=== PATIENT | female | born 1990 | race Caucasian/White ===

== ENCOUNTER 2017-05-22 10:58 | Emergency (ER) | payer OTHER ==
[2017-05-22] MEDS ORDERED: Ondansetron ODT 4 MG TAB ONE (11:24)
[2017-05-22] MEDS ORDERED: Acetaminophen/Codeine 30-300mg Tablet ONE (12:06)
== END 2017-05-22 12:10 | disposition home or self-care (01) ==
LOC: SCSER 10:58
DX: S00.83XA Contusion of other part of head, initial encounter (principal); F41.9 Anxiety disorder, unspecified; M32.9 Systemic lupus erythematosus, unspecified; W01.10XA Fall on same level from slipping, tripping and stumbling with subsequent striking against unspecified object, initial encounter
CPT/HCPCS: Q0162

== ENCOUNTER 2017-06-15 16:15 | Emergency (ER) | payer OTHER ==
[2017-06-15] MEDS ORDERED: predniSONE 20 MG TAB ONE (17:03)
[2017-06-15] MEDS ORDERED: HYDROcodone/Acetaminophen 10/325 mg Tablet ONE (17:03)
== END 2017-06-15 17:15 | disposition home or self-care (01) ==
LOC: SCSER 16:15
DX: M54.42 Lumbago with sciatica, left side (principal); M32.9 Systemic lupus erythematosus, unspecified; F41.9 Anxiety disorder, unspecified
CPT/HCPCS: 99283; J7506

== ENCOUNTER 2017-06-20 16:51 | Emergency (ER) | payer OTHER ==
[2017-06-20 18:14] LABS: Bilirubin Negative (Negative); Blood, Urine Large (Negative); Glucose, Urine (Dipstick) Negative (Negative); Ketone, Urine Negative (Negative); Nitrite Negative (Negative); Protein, Urine (Dipstick) 30 mg/dL (Neg-Trace); Urobilinogen 0.2 mg/dL (0.2-1.0)
[2017-06-20 18:21] LABS: Bacteria/HPF 1+ HPF (None Seen); RBC/HPF 21-50 HPF (0-3); WBC/HPF None Seen HPF (0-3)
[2017-06-20] MEDS ORDERED: Morphine 4 MG/ML Carpuject ONE (19:00)
[2017-06-20] MEDS ORDERED: Dexamethasone 10 MG/ML VIAL ONE (19:00)
[2017-06-20] MEDS ORDERED: Ondansetron ODT 4 MG TAB ONE (19:00)
== END 2017-06-20 19:35 | disposition home or self-care (01) ==
LOC: SCSER 16:51
DX: M54.42 Lumbago with sciatica, left side (principal); F41.9 Anxiety disorder, unspecified; M32.9 Systemic lupus erythematosus, unspecified
CPT/HCPCS: 81003; 81015; 81025; 96372; J1100; J2270; Q0162

== ENCOUNTER 2017-07-12 01:02 | Emergency (ER) | payer OTHER ==
--- NOTE | 2017-08-10 11:56 | EKG ---
Test Reason : Blood Pressure : / mmHG Vent. Rate : 094 BPM Atrial Rate : 094 BPM P-R Int : 108 ms QRS Dur : 078 ms QT Int : 350 ms P-R-T Axes : 065 056 055 degrees QTc Int : 437 ms Sinus rhythm with short OH Otherwise normal ECG Confirmed by ELIDA KENNY, DEEPAK ([id number]), sports editor KIERAN SCHUMACHER ([id number]) on 08/10/2017 11:56:18 AM Referred By: Confirmed By:DEEPAK MARRERO MD
== END 2017-07-12 02:01 | disposition home or self-care (01) ==
LOC: SCSER 01:02
DX: M17.0 Bilateral primary osteoarthritis of knee (principal); M19.012 Primary osteoarthritis, left shoulder; M19.011 Primary osteoarthritis, right shoulder; M19.032 Primary osteoarthritis, left wrist; M19.031 Primary osteoarthritis, right wrist; M32.9 Systemic lupus erythematosus, unspecified; F41.9 Anxiety disorder, unspecified; Z79.52 Long term (current) use of systemic steroids
CPT/HCPCS: 93005

== ENCOUNTER 2017-09-18 19:43 | Emergency (ER) | payer OTHER ==
[2017-09-18] MEDS ORDERED: Ketorolac Tromethamine 30 MG/ML VIAL ONE (20:16)
[2017-09-18 20:39] LABS: Pregnancy Test - Urine (BHCG) Negative (Negative); Pregu Control Background? CLEAR/WHITE (CLR/WHITE); Pregu Control Bar Appear? YES (CONTROL BAR); Specific Gravity 1.032 (1.002-1.036)
--- NOTE | 2017-09-18 21:16 | RAD ---
AP PELVIS: 09/18/17 HISTORY: Low back pain and hip pain. The pelvis is intact. Hips appear unremarkable. No abnormality identified. IMPRESSION: No acute findings. POS: [facility]
--- NOTE | 2017-09-18 21:18 | RAD ---
LEFT HIP: 09/18/17 Two views. HISTORY: Left hip pain. Femoral head appears normally maintained in position. No fracture or osseous abnormality identified. IMPRESSION: Unremarkable left hip. POS: [facility]
--- NOTE | 2017-09-18 21:20 | RAD ---
LUMBAR SPINE: 09/18/17 Three views. HISTORY: Low back pain. Lumbar vertebrae maintain normal height and alignment. There is loss of disc space at L5-S1. No evide nce of spondylolisthesis or spondylolysis. S1 is transitional. IMPRESSION: Unremarkable lumbar spine. POS: [facility]
== END 2017-09-18 21:15 | disposition home or self-care (01) ==
LOC: SCSER 19:43
DX: M54.16 Radiculopathy, lumbar region (principal); L93.0 Discoid lupus erythematosus; F41.9 Anxiety disorder, unspecified; Z79.899 Other long term (current) drug therapy
CPT/HCPCS: 72100; 72170; 81025; 96372; J1885

== ENCOUNTER 2017-12-03 21:22 | Emergency (ER) | payer OTHER | END 2017-12-03 21:39 | disposition left against medical advice (07) | LOC: SCSER 21:22 | DX: Z53.21 Procedure and treatment not carried out due to patient leaving prior to being seen by health care provider (principal) ==

== ENCOUNTER 2018-02-25 19:42 | Emergency (ER) | payer OTHER ==
[2018-02-25] MEDS ORDERED: Ketorolac Tromethamine 30 MG/ML VIAL ONE (20:03)
[2018-02-25 20:25] LABS: #Basophils 0.1 thou/uL (0.0-0.2); #Eosinphils 0.2 thou/uL (0.0-0.7); #Lymphocytes 1.9 thou/uL (1.20-3.40); #Monocytes 0.5 thou/uL (0.11-0.59); #Neutrophils 3.5 thou/uL (1.40-6.50); %Basophils 0.8 % (0.0-1.0); %Lymphocytes 30.8 % (21.0-51.0); %Neutrophils 57.4 % (42.0-75.0); Anisocytosis SLIGHT = 6-15 cells (100X) (0-5/hpf); Elliptocytes SLIGHT = 2-5 cells (100X) (0-1/hpf); Hemoglobin 8.5 g/dL (12.0-16.0); Hypochromia MODERATE=16-30 cells (100X) (0-5/hpf); MDiff Complete? YES; Mean Corpuscular HGB CONC 30.6 g/dL (32.0-36.0); Mean Corpuscular Volume 68.6 fL (78.0-98.0); Mean Platelet Volume 7.3 fL (7.4-10.4); Microcytosis MODERATE=15-30 cells (100X) (0-5/hpf); PLT Morphology Comment Appears Adequate; Platelet Count 206 thou/uL (130-400); RBC Distribution Width 13.8 % (11.5-14.5); Red Blood Cell (RBC) Count 4.03 mill/uL (4.20-5.40); Reflex for Review?? YES
[2018-02-25 20:29] LABS: ALT (SGPT) 19 U/L (8-55); AST (SGOT) 16 U/L (5-34); Albumin 3.4 g/dL (3.5-5.0); Alkaline Phosphatase 47 U/L (40-150); Anion Gap 11 mmol/L (10-20); BUN (Urea Nitrogen) 15 mg/dL (7.0-18.7); Bilirubin, Total 0.2 mg/dL (0.2-1.2); Calc. Creatinine Clearance 0 mL/min (70-130); Calcium 8.4 mg/dL (7.8-10.44); Carbon Dioxide 26 mmol/L (22-29); Chloride 108 mmol/L (98-107); Estimated GFR-MDRD Greater than 90; Glucose 87 mg/dL (70-105); Lipase 29 U/L (8-78); Potassium 3.7 mmol/L (3.5-5.1); Protein, Total 5.4 g/dL (6.0-8.3); Sodium 141 mmol/L (136-145)
[2018-02-25 20:44] LABS: Bilirubin Moderate (Negative); Blood, Urine Negative (Negative); Clarity Slightly Cloudy (Clear); Glucose, Urine (Dipstick) Negative (Negative); Leukocyte Trace (Negative); Nitrite Negative (Negative); Protein, Urine (Dipstick) Negative (Neg-Trace); Specific Gravity, Urine 1.025 (1.005-1.030); Urobilinogen 0.2 mg/dL (0.2-1.0)
[2018-02-25 20:46] LABS: RBC/HPF 0-3 HPF (0-3)
[2018-02-25 20:47] LABS: Bacteria/HPF 1+ HPF (None Seen); Pregnancy Test - Urine (BHCG) Negative (Negative); Pregu Control Background? CLEAR/WHITE (CLR/WHITE); Pregu Control Bar Appear? YES (CONTROL BAR); Specific Gravity 1.025 (1.002-1.036)
[2018-02-25] MEDS ORDERED: Acetaminophen 500 MG TAB ONE (21:21)
--- NOTE | 2018-02-25 22:18 | CT ---
CT ABDOMEN AND PELVIS WITHOUT CONTRAST: 02/25/18 HISTORY: Right flank pain. COMPARISON: CT abdomen and pelvis January 06, 2017. FINDINGS: Lung bases are clear. No pericardial effusion. Prior cholecystectomy. Prior gastric surgery. There is no nephroureterolithiasis or hydroureteronephrosis. No secondary evidence of a recently pass ed stone. No free intraperitoneal gas or fluid. Mild third spacing of fluid. There are a few appendicoliths wit hin the appendix versus inspissated material. No evidence of acute appendicitis. Noncontrast evaluation of the liver, spleen, pancreas are all unremarkable. 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 IMPRESSION: 1. No acute inflammatory process in the abdomen or pelvis. 2. No nephroureterolithiasis or hydroureteronephrosis. No secondary evidence of a recently passe d stone. 3. Mild third spacing of fluid. POS: [facility]
== END 2018-02-25 21:25 | disposition home or self-care (01) ==
LOC: SCSER 19:42
DX: N39.0 Urinary tract infection, site not specified (principal)
CPT/HCPCS: 36415; 74176; 80053; 81003; 81015; 81025; 83690; 85025; 85060; 87086; 96361; 96374; J1885

== ENCOUNTER 2019-10-31 15:01 | Emergency (ER) | payer MEDICAID, OTHER, SELFPAY ==
[2019-10-31 15:47] LABS: #Basophils 0.1 thou/uL (0.0-0.2); #Eosinphils 0.1 thou/uL (0.0-0.7); #Lymphocytes 2.7 thou/uL (1.20-3.40); #Monocytes 0.4 thou/uL (0.11-0.59); #Neutrophils 4.7 thou/uL (1.40-6.50); %Basophils 1.2 % (0.0-1.0); %Eosinophils 0.9 % (0.0-10.0); %Lymphocytes 34.2 % (21.0-51.0); %Monocytes 4.9 % (0.0-10.0); %Neutrophils 58.8 % (42.0-75.0); Hemoglobin 14.2 g/dL (12.0-16.0); Mean Corpuscular HGB CONC 32.3 g/dL (32.0-36.0); Mean Corpuscular Hemoglobin 27.2 pg (27.0-31.0); Mean Corpuscular Volume 84.4 fL (78.0-98.0); Mean Platelet Volume 7.9 fL (7.4-10.4); Platelet Count 278 thou/uL (130-400); RBC Distribution Width 12.8 % (11.5-14.5); Red Blood Cell (RBC) Count 5.22 mill/uL (4.20-5.40); White Blood Cell (WBC) Count 7.9 thou/uL (4.8-10.8)
[2019-10-31 15:55] LABS: BHCG - Serum Negative (NEGATIVE); Pregs Control Background? CLEAR/WHITE (CLR/WHITE); Pregs Control Bar Appear? YES (CONTROL BAR)
[2019-10-31 16:05] LABS: Acetaminophen Less than 6.0 mcg/mL (10.0-30.0); Alcohol 269 mg/dL (Less than 10); CK (CPK) 157 U/L (29-168); Salicylate Less than 8.0 mg/dL (15.0-30.0)
[2019-10-31 16:14] LABS: Amphetamine Detected (NotDetected); Barbiturates Screen Not Detected (NotDetected); Benzodiazepine Screen Not Detected (NotDetected); Cocaine Metabolite Screen Not Detected (NotDetected); Medtox Control Line Valid? VALID (VALID); Medtox Reader # READER 4; Methadone Not Detected (NotDetected); Methamphetamine Not Detected (NotDetected); Opiate Screen Not Detected (NotDetected); Oxycodone Screen Not Detected (NotDetected); Phencyclidine (PCP) Not Detected (NotDetected); THC/Cannabinoid Screen Not Detected (NotDetected); Tricyclic Screen Not Detected (NotDetected)
[2019-10-31 16:18] LABS: ALT (SGPT) 15 U/L (8-55); AST (SGOT) 26 U/L (5-34); Albumin 3.8 g/dL (3.5-5.0); Alkaline Phosphatase 53 U/L (40-110); Anion Gap 20 mmol/L (10-20); BUN (Urea Nitrogen) 6 mg/dL (7.0-18.7); Bilirubin, Total 0.3 mg/dL (0.2-1.2); Calc. Creatinine Clearance 0 mL/min (70-130); Calcium 8.8 mg/dL (7.8-10.44); Carbon Dioxide 15 mmol/L (22-29); Chloride 109 mmol/L (98-107); Estimated GFR-MDRD Greater than 90; Globulin 3.4 g/dL (2.4-3.5); Glucose 93 mg/dL (70-105); Potassium 4.2 mmol/L (3.5-5.1); Protein, Total 7.2 g/dL (6.0-8.3); Sodium 140 mmol/L (136-145)
--- NOTE | 2019-11-04 14:15 | EKG ---
Test Reason : Blood Pressure : / mmHG Vent. Rate : 079 BPM Atrial Rate : 079 BPM P-R Int : 120 ms QRS Dur : 080 ms QT Int : 394 ms P-R-T Axes : 023 059 058 degrees QTc Int : 451 ms Normal sinus rhythm Normal ECG Confirmed by GUERA STATON DO ([id number]), video editor LUZ JOSE ([id number]) on 11/04/2019 2:15:22 PM Referred By: Confirmed By:GUERA STATON DO
== END 2019-10-31 16:38 | disposition short-term general hospital (02) ==
LOC: ERS 15:01
DX: T74.21XA Adult sexual abuse, confirmed, initial encounter (principal); S40.022A Contusion of left upper arm, initial encounter; S40.021A Contusion of right upper arm, initial encounter; F10.129 Alcohol abuse with intoxication, unspecified; F15.90 Other stimulant use, unspecified, uncomplicated; F41.9 Anxiety disorder, unspecified; F32.9 Major depressive disorder, single episode, unspecified; Y07.59 Other non-family member, perpetrator of maltreatment and neglect; Y90.8 Blood alcohol level of 240 mg/100 ml or more
CPT/HCPCS: 36415; 80053; 80306; 80307; 82550; 84703; 85025; 87086; 93005

== ENCOUNTER 2021-02-25 07:24 | Inpatient (IN) | payer BC, SELFPAY ==
[2021-02-25] MEDS ORDERED: Guaifenesin DM 100-10/5 ML UDCUP PO PRN (09:35)
[2021-02-25] MEDS ORDERED: Ivermectin 3 MG TAB PO SCH (09:45)
[2021-02-25 10:29] LABS: #Lymphocytes 0.1 thou/uL (1.20-3.40); #Monocytes 0.1 thou/uL (0.11-0.59); %Eosinophils 0.1 % (0.0-10.0); %Lymphocytes 4.2 % (21.0-51.0); %Monocytes 4.3 % (0.0-10.0); %Neutrophils 90.5 % (42.0-75.0); Hemoglobin 10.2 g/dL (12.0-16.0); Mean Corpuscular HGB CONC 30.9 g/dL (32.0-36.0); Mean Corpuscular Hemoglobin 24.8 pg (27.0-31.0); Mean Corpuscular Volume 80.2 fL (78.0-98.0); Mean Platelet Volume 9.9 fL (7.4-10.4); Platelet Count 160 thou/uL (130-400); RBC Distribution Width 14.5 % (11.5-14.5); Red Blood Cell (RBC) Count 4.12 mill/uL (4.20-5.40); White Blood Cell (WBC) Count 3.3 thou/uL (4.8-10.8)
[2021-02-25 10:47] LABS: Anion Gap 13 mmol/L (10-20); BUN (Urea Nitrogen) 6 mg/dL (7.0-18.7); CRP (Inflammatory) 12.73 mg/dL (= or < 0.5); Calc. Creatinine Clearance 248 mL/min (70-130); Calcium 8.3 mg/dL (7.8-10.44); Carbon Dioxide 28 mmol/L (22-29); Chloride 97 mmol/L (98-107); Glucose 86 mg/dL (70-105); Magnesium 1.6 mg/dL (1.6-2.6); Potassium 3.4 mmol/L (3.5-5.1); Sodium 135 mmol/L (136-145)
[2021-02-25] MEDS ORDERED: Magnesium 2 GM/50 ML 2 GM in Premix Bag 1 BAG IVPB SCH (13:00)
[2021-02-25] MEDS ORDERED: Potassium Chloride 20 MEQ TAB PO SCH (13:00)
[2021-02-25] MEDS: clonazePAM 0.5 MG TAB PO SCH ×2 (13:44→20:17)
[2021-02-25] MEDS: Acetaminophen 325 MG TAB PO PRN ×2 (16:06→23:39)
[2021-02-25] MEDS ORDERED: REMDESIVIR 200 MG in Sodium Chloride 0.9% 250 ML 210 ML IV SCH (16:15)
[2021-02-25] MEDS ORDERED: BARICITINIB 2 MG TAB PO SCH (16:15)
[2021-02-25] MEDS ORDERED: traMADol HCl 50 MG TAB PO PRN (16:21)
[2021-02-25] MEDS: cloNIDine 0.1 MG TAB PO SCH (20:17)
[2021-02-25] MEDS: Dexamethasone 4 mg/ml Vial SLOW IVP SCH (20:17)
[2021-02-25] MEDS: Pregabalin 75 MG CAP PO SCH (20:18)
[2021-02-25] MEDS: Colchicine 0.6 MG TAB PO SCH (20:18)
[2021-02-25] MEDS: Enoxaparin Sodium 40 MG/0.4 ML SYRINGE SC SCH (20:18)
[2021-02-25] MEDS ORDERED: Non-Formulary Item 1 EACH (Dextroamphetamine/Amphetamine [Adderall] 30 MG Tablet) PO SCH (21:00)
[2021-02-25] MEDS: Mometasone 200 MCG/Formoterol 5 MCG 120 PUFF INHALER INH SCH (21:15)
[2021-02-25] MEDS: hydrOXYzine 25 MG TAB PO PRN (23:36)
[2021-02-26] MEDS: Mometasone 200 MCG/Formoterol 5 MCG 120 PUFF INHALER INH SCH ×2 (05:54→18:22)
[2021-02-26 06:32] LABS: Band 18 % (5-11); Hemoglobin 11.2 g/dL (12.0-16.0); Lymphocytes 9 % (21-51); MDiff Complete? YES; Mean Corpuscular HGB CONC 32.1 g/dL (32.0-36.0); Mean Corpuscular Hemoglobin 25.5 pg (27.0-31.0); Mean Corpuscular Volume 79.3 fL (78.0-98.0); Mean Platelet Volume 10.6 fL (7.4-10.4); Monocytes 7 % (0-10); Myelocyte 1 % (0-0); Neutrophil 64 % (42-75); Platelet Count 128 thou/uL (130-400); Platelet Morphology Comment Appears Adequate; RBC Distribution Width 14.3 % (11.5-14.5); RBC Morphology Normal; Reactive Lymphocytes 1 % (0-10); Red Blood Cell (RBC) Count 4.39 mill/uL (4.20-5.40); White Blood Cell (WBC) Count 2.6 thou/uL (4.8-10.8)
[2021-02-26 06:35] LABS: Anion Gap 15 mmol/L (10-20); BUN (Urea Nitrogen) 5 mg/dL (7.0-18.7); Calc. Creatinine Clearance 236 mL/min (70-130); Calcium 8.4 mg/dL (7.8-10.44); Carbon Dioxide 26 mmol/L (22-29); Chloride 100 mmol/L (98-107); Glucose 84 mg/dL (70-105); Potassium 3.8 mmol/L (3.5-5.1); Sodium 137 mmol/L (136-145)
[2021-02-26] MEDS: Ondansetron PF 4 MG/2 ML Vial IVP PRN (06:35)
[2021-02-26] MEDS: BARICITINIB 2 MG TAB PO SCH (08:28)
[2021-02-26] MEDS: Ascorbic Acid 500 mg Chewable Tablet PO SCH (08:28)
[2021-02-26] MEDS: Cholecalciferol 1,000 UNITS (25 MCG) TAB PO SCH (08:29)
[2021-02-26] MEDS: Colchicine 0.6 MG TAB PO SCH ×2 (08:30→20:13)
[2021-02-26] MEDS: clonazePAM 0.5 MG TAB PO SCH ×3 (08:30→20:15)
[2021-02-26] MEDS ORDERED: Cholecalciferol 1,000 UNITS (25 MCG) TAB PO SCH (08:30)
[2021-02-26] MEDS: Dexamethasone 4 mg/ml Vial SLOW IVP SCH ×2 (08:30→20:16)
[2021-02-26] MEDS: Pregabalin 75 MG CAP PO SCH ×3 (08:32→20:14)
[2021-02-26] MEDS: Zinc Sulfate 220 MG CAP PO SCH (08:33)
[2021-02-26] MEDS: FLUoxetine HCl 10 MG CAP PO SCH (08:38)
[2021-02-26] MEDS ORDERED: FLUoxetine HCl 20 MG CAP PO SCH (09:00)
[2021-02-26] MEDS ORDERED: Morphine 2 MG/ML VIAL SLOW IVP PRN (09:08)
[2021-02-26] MEDS: Ivermectin 3 MG TAB PO SCH (11:38)
[2021-02-26] MEDS: Morphine 2 MG/ML VIAL SLOW IVP PRN ×3 (12:21→22:30)
[2021-02-26] MEDS: Albuterol 200 PUFF (6.7GM INHALER) INH SCH ×2 (12:27→20:18)
[2021-02-26] MEDS ORDERED: Albuterol Sulfate 2.5 mg/3 ml Neb NEB SCH (13:00)
[2021-02-26] MEDS ORDERED: Sodium Chloride 0.9% 1,000 ML IV SCH (13:30)
[2021-02-26] MEDS: Ondansetron ODT 4 MG TAB PO PRN (16:01)
[2021-02-26] MEDS: cloNIDine 0.1 MG TAB PO SCH (20:13)
[2021-02-26] MEDS: Enoxaparin Sodium 40 MG/0.4 ML SYRINGE SC SCH (20:15)
[2021-02-26] MEDS: REMDESIVIR 100 MG in Sodium Chloride 0.9% 250 ML 230 ML IV SCH (23:22)
[2021-02-27] MEDS: Albuterol 200 PUFF (6.7GM INHALER) INH SCH ×4 (01:05→18:25)
[2021-02-27] MEDS: Morphine 2 MG/ML VIAL SLOW IVP PRN ×4 (05:18→21:10)
[2021-02-27] MEDS: Mometasone 200 MCG/Formoterol 5 MCG 120 PUFF INHALER INH SCH ×2 (06:23→17:31)
[2021-02-27 06:42] LABS: #Lymphocytes 0.2 thou/uL (1.20-3.40); #Monocytes 0.2 thou/uL (0.11-0.59); #Neutrophils 1.3 thou/uL (1.40-6.50); %Eosinophils 0.1 % (0.0-10.0); %Monocytes 9.4 % (0.0-10.0); %Neutrophils 76.5 % (42.0-75.0); Hemoglobin 10.1 g/dL (12.0-16.0); Mean Corpuscular HGB CONC 31.8 g/dL (32.0-36.0); Mean Corpuscular Hemoglobin 25.3 pg (27.0-31.0); Mean Corpuscular Volume 79.6 fL (78.0-98.0); Mean Platelet Volume 9.2 fL (7.4-10.4); Platelet Count 184 thou/uL (130-400); RBC Distribution Width 14.4 % (11.5-14.5); White Blood Cell (WBC) Count 1.7 thou/uL (4.8-10.8)
[2021-02-27 07:04] LABS: Anion Gap 12 mmol/L (10-20); BUN (Urea Nitrogen) 8 mg/dL (7.0-18.7); CRP (Inflammatory) 10.75 mg/dL (= or < 0.5); Calc. Creatinine Clearance 225 mL/min (70-130); Calcium 8.4 mg/dL (7.8-10.44); Carbon Dioxide 29 mmol/L (22-29); Chloride 103 mmol/L (98-107); Glucose 141 mg/dL (70-105); Potassium 3.9 mmol/L (3.5-5.1); Sodium 140 mmol/L (136-145)
[2021-02-27] MEDS: Ivermectin 3 MG TAB PO SCH (08:22)
[2021-02-27] MEDS: Pregabalin 75 MG CAP PO SCH ×3 (08:23→21:53)
[2021-02-27] MEDS: Zinc Sulfate 220 MG CAP PO SCH (08:23)
[2021-02-27] MEDS: Colchicine 0.6 MG TAB PO SCH ×2 (08:23→21:53)
[2021-02-27] MEDS: clonazePAM 0.5 MG TAB PO SCH ×3 (08:23→21:59)
[2021-02-27] MEDS: Cholecalciferol 1,000 UNITS (25 MCG) TAB PO SCH (08:23)
[2021-02-27] MEDS: Dexamethasone 4 mg/ml Vial SLOW IVP SCH ×2 (08:24→21:54)
[2021-02-27] MEDS: Ascorbic Acid 500 mg Chewable Tablet PO SCH (08:24)
[2021-02-27] MEDS: BARICITINIB 2 MG TAB PO SCH (08:24)
[2021-02-27] MEDS: FLUoxetine HCl 10 MG CAP PO SCH (08:24)
[2021-02-27] MEDS: ALPRAZolam 0.25 MG TAB PO PRN (11:52)
[2021-02-27] MEDS: Enoxaparin Sodium 40 MG/0.4 ML SYRINGE SC SCH (21:53)
[2021-02-27] MEDS: REMDESIVIR 100 MG in Sodium Chloride 0.9% 250 ML 230 ML IV SCH (21:55)
[2021-02-28] MEDS: cloNIDine 0.1 MG TAB PO SCH ×2 (02:06→20:38)
[2021-02-28] MEDS: hydrOXYzine 25 MG TAB PO PRN (03:10)
[2021-02-28] MEDS: ALPRAZolam 0.25 MG TAB PO PRN ×3 (03:10→18:44)
[2021-02-28 06:53] LABS: #Lymphocytes 0.3 thou/uL (1.20-3.40); #Monocytes 0.4 thou/uL (0.11-0.59); #Neutrophils 5.1 thou/uL (1.40-6.50); %Eosinophils 0.3 % (0.0-10.0); %Lymphocytes 5.4 % (21.0-51.0); %Monocytes 7.4 % (0.0-10.0); Hemoglobin 10.2 g/dL (12.0-16.0); Mean Corpuscular HGB CONC 31.6 g/dL (32.0-36.0); Mean Platelet Volume 8.9 fL (7.4-10.4); Platelet Count 238 thou/uL (130-400); RBC Distribution Width 14.3 % (11.5-14.5); Red Blood Cell (RBC) Count 4.07 mill/uL (4.20-5.40); White Blood Cell (WBC) Count 5.9 thou/uL (4.8-10.8)
[2021-02-28 07:06] LABS: Anion Gap 11 mmol/L (10-20); BUN (Urea Nitrogen) 11 mg/dL (7.0-18.7); CRP (Inflammatory) 4.47 mg/dL (= or < 0.5); Calc. Creatinine Clearance 225 mL/min (70-130); Calcium 8.4 mg/dL (7.8-10.44); Carbon Dioxide 30 mmol/L (22-29); Chloride 103 mmol/L (98-107); Glucose 114 mg/dL (70-105); Potassium 3.8 mmol/L (3.5-5.1); Sodium 140 mmol/L (136-145)
[2021-02-28] MEDS: Dexamethasone 4 mg/ml Vial SLOW IVP SCH ×2 (08:20→20:39)
[2021-02-28] MEDS: Colchicine 0.6 MG TAB PO SCH ×2 (08:21→20:37)
[2021-02-28] MEDS: Zinc Sulfate 220 MG CAP PO SCH (08:21)
[2021-02-28] MEDS: Ascorbic Acid 500 mg Chewable Tablet PO SCH (08:21)
[2021-02-28] MEDS: Cholecalciferol 1,000 UNITS (25 MCG) TAB PO SCH (08:21)
[2021-02-28] MEDS: FLUoxetine HCl 10 MG CAP PO SCH (08:22)
[2021-02-28] MEDS: Pregabalin 75 MG CAP PO SCH ×3 (08:22→20:37)
[2021-02-28] MEDS: Albuterol 200 PUFF (6.7GM INHALER) INH SCH ×4 (08:22→20:32)
[2021-02-28] MEDS: clonazePAM 0.5 MG TAB PO SCH ×3 (08:22→20:38)
[2021-02-28] MEDS: Ivermectin 3 MG TAB PO SCH (08:23)
[2021-02-28] MEDS: Mometasone 200 MCG/Formoterol 5 MCG 120 PUFF INHALER INH SCH ×2 (08:23→20:33)
[2021-02-28] MEDS: BARICITINIB 2 MG TAB PO SCH (08:24)
[2021-02-28] MEDS: Ondansetron PF 4 MG/2 ML Vial IVP PRN (10:13)
[2021-02-28] MEDS: Morphine 2 MG/ML VIAL SLOW IVP PRN (14:12)
[2021-02-28] MEDS: HYDROcodone/Acetaminophen 5/325 mg Tablet PO PRN (18:44)
[2021-02-28] MEDS: Enoxaparin Sodium 40 MG/0.4 ML SYRINGE SC SCH (20:39)
[2021-02-28] MEDS: REMDESIVIR 100 MG in Sodium Chloride 0.9% 250 ML 230 ML IV SCH (21:19)
[2021-03-01] MEDS: HYDROcodone/Acetaminophen 5/325 mg Tablet PO PRN ×4 (00:51→20:00)
[2021-03-01] MEDS: Albuterol 200 PUFF (6.7GM INHALER) INH SCH ×4 (00:52→19:41)
[2021-03-01] MEDS: hydrOXYzine 25 MG TAB PO PRN (02:14)
[2021-03-01 04:29] LABS: ALT (SGPT) 29 U/L (8-55); AST (SGOT) 34 U/L (5-34); Albumin 2.7 g/dL (3.5-5.0); Alkaline Phosphatase 110 U/L (40-110); Anion Gap 12 mmol/L (10-20); BUN (Urea Nitrogen) 12 mg/dL (7.0-18.7); Bilirubin, Direct 0.1 mg/dL (0.1-0.3); Bilirubin, Total 0.3 mg/dL (0.2-1.2); Calc. Creatinine Clearance 237 mL/min (70-130); Carbon Dioxide 28 mmol/L (22-29); Chloride 102 mmol/L (98-107); Globulin 2.6 g/dL (2.4-3.5); Glucose 111 mg/dL (70-105); Protein, Total 5.3 g/dL (6.0-8.3); Sodium 138 mmol/L (136-145)
[2021-03-01] MEDS: Mometasone 200 MCG/Formoterol 5 MCG 120 PUFF INHALER INH SCH ×2 (05:49→19:42)
[2021-03-01] MEDS: ALPRAZolam 0.25 MG TAB PO PRN (05:49)
[2021-03-01 07:26] LABS: #Lymphocytes 0.4 thou/uL (1.20-3.40); #Monocytes 0.5 thou/uL (0.11-0.59); %Eosinophils 0.2 % (0.0-10.0); %Lymphocytes 7.3 % (21.0-51.0); %Monocytes 8.6 % (0.0-10.0); %Neutrophils 83.8 % (42.0-75.0); Hemoglobin 10.6 g/dL (12.0-16.0); Mean Corpuscular Hemoglobin 25.2 pg (27.0-31.0); Mean Corpuscular Volume 78.7 fL (78.0-98.0); Mean Platelet Volume 8.8 fL (7.4-10.4); Platelet Count 242 thou/uL (130-400); RBC Distribution Width 14.1 % (11.5-14.5)
[2021-03-01] MEDS: Aspirin 81 mg Enteric Coated Tablet PO SCH (07:56)
[2021-03-01] MEDS: clonazePAM 0.5 MG TAB PO SCH ×3 (07:56→19:59)
[2021-03-01] MEDS: Ascorbic Acid 500 mg Chewable Tablet PO SCH (07:56)
[2021-03-01] MEDS: Cholecalciferol 1,000 UNITS (25 MCG) TAB PO SCH (07:56)
[2021-03-01] MEDS: Dexamethasone 4 mg/ml Vial SLOW IVP SCH ×2 (07:57→20:01)
[2021-03-01] MEDS: FLUoxetine HCl 10 MG CAP PO SCH (07:57)
[2021-03-01] MEDS: Enoxaparin Sodium 40 MG/0.4 ML SYRINGE SC SCH ×2 (07:57→19:58)
[2021-03-01] MEDS: Colchicine 0.6 MG TAB PO SCH ×2 (07:57→20:00)
[2021-03-01] MEDS: Zinc Sulfate 220 MG CAP PO SCH (07:57)
[2021-03-01] MEDS: Pregabalin 75 MG CAP PO SCH ×3 (07:58→19:59)
[2021-03-01] MEDS: BARICITINIB 2 MG TAB PO SCH (08:03)
[2021-03-01] MEDS: Ivermectin 3 MG TAB PO SCH (08:03)
[2021-03-01] MEDS: Ondansetron PF 4 MG/2 ML Vial IVP PRN ×2 (12:44→20:24)
[2021-03-01] MEDS: cloNIDine 0.1 MG TAB PO SCH (19:59)
[2021-03-01] MEDS: REMDESIVIR 100 MG in Sodium Chloride 0.9% 250 ML 230 ML IV SCH (22:09)
[2021-03-02] MEDS: ALPRAZolam 0.25 MG TAB PO PRN ×2 (00:59→23:29)
[2021-03-02] MEDS: Albuterol 200 PUFF (6.7GM INHALER) INH SCH ×4 (01:08→19:30)
[2021-03-02] MEDS: HYDROcodone/Acetaminophen 5/325 mg Tablet PO PRN ×3 (03:14→16:42)
[2021-03-02] MEDS: hydrOXYzine 25 MG TAB PO PRN (03:58)
[2021-03-02 04:15] LABS: ALT (SGPT) 22 U/L (8-55); AST (SGOT) 21 U/L (5-34); Albumin 2.9 g/dL (3.5-5.0); Alkaline Phosphatase 112 U/L (40-110); Anion Gap 13 mmol/L (10-20); BUN (Urea Nitrogen) 11 mg/dL (7.0-18.7); Bilirubin, Total 0.4 mg/dL (0.2-1.2); Calc. Creatinine Clearance 215 mL/min (70-130); Calcium 8.1 mg/dL (7.8-10.44); Carbon Dioxide 28 mmol/L (22-29); Chloride 103 mmol/L (98-107); Globulin 2.7 g/dL (2.4-3.5); Glucose 115 mg/dL (70-105); Protein, Total 5.6 g/dL (6.0-8.3); Sodium 140 mmol/L (136-145)
[2021-03-02] MEDS: Mometasone 200 MCG/Formoterol 5 MCG 120 PUFF INHALER INH SCH ×2 (07:10→19:30)
[2021-03-02] MEDS: Ascorbic Acid 500 mg Chewable Tablet PO SCH (09:01)
[2021-03-02] MEDS: Aspirin 81 mg Enteric Coated Tablet PO SCH (09:01)
[2021-03-02] MEDS: BARICITINIB 2 MG TAB PO SCH (09:01)
[2021-03-02] MEDS: Cholecalciferol 1,000 UNITS (25 MCG) TAB PO SCH (09:01)
[2021-03-02] MEDS: clonazePAM 0.5 MG TAB PO SCH ×3 (09:02→21:17)
[2021-03-02] MEDS: Dexamethasone 4 mg/ml Vial SLOW IVP SCH ×2 (09:02→21:18)
[2021-03-02] MEDS: Colchicine 0.6 MG TAB PO SCH ×2 (09:02→21:17)
[2021-03-02] MEDS: Pregabalin 75 MG CAP PO SCH ×3 (09:03→21:17)
[2021-03-02] MEDS: Enoxaparin Sodium 40 MG/0.4 ML SYRINGE SC SCH ×2 (09:03→21:17)
[2021-03-02] MEDS: FLUoxetine HCl 10 MG CAP PO SCH (09:03)
[2021-03-02] MEDS: Zinc Sulfate 220 MG CAP PO SCH (09:03)
[2021-03-02] MEDS: Ivermectin 3 MG TAB PO SCH (09:03)
[2021-03-02] MEDS: Ondansetron ODT 4 MG TAB PO PRN (10:48)
[2021-03-03] MEDS: Albuterol 200 PUFF (6.7GM INHALER) INH SCH ×4 (00:30→20:50)
[2021-03-03] MEDS: cloNIDine 0.1 MG TAB PO SCH ×2 (00:35→21:13)
[2021-03-03] MEDS: HYDROcodone/Acetaminophen 5/325 mg Tablet PO PRN ×3 (01:27→16:15)
[2021-03-03 04:19] LABS: ALT (SGPT) 18 U/L (8-55); AST (SGOT) 21 U/L (5-34); Albumin 2.9 g/dL (3.5-5.0); Alkaline Phosphatase 100 U/L (40-110); Anion Gap 11 mmol/L (10-20); BUN (Urea Nitrogen) 8 mg/dL (7.0-18.7); Bilirubin, Total 0.5 mg/dL (0.2-1.2); Calc. Creatinine Clearance 224 mL/min (70-130); Calcium 8.3 mg/dL (7.8-10.44); Carbon Dioxide 31 mmol/L (22-29); Chloride 100 mmol/L (98-107); Globulin 2.9 g/dL (2.4-3.5); Glucose 109 mg/dL (70-105); Potassium 3.7 mmol/L (3.5-5.1); Protein, Total 5.8 g/dL (6.0-8.3); Sodium 138 mmol/L (136-145)
[2021-03-03] MEDS: Ondansetron PF 4 MG/2 ML Vial IVP PRN (06:36)
[2021-03-03] MEDS: Acetaminophen 325 MG TAB PO PRN (06:37)
[2021-03-03] MEDS: Mometasone 200 MCG/Formoterol 5 MCG 120 PUFF INHALER INH SCH ×2 (08:49→20:50)
[2021-03-03] MEDS: Ascorbic Acid 500 mg Chewable Tablet PO SCH (08:52)
[2021-03-03] MEDS: Aspirin 81 mg Enteric Coated Tablet PO SCH (08:52)
[2021-03-03] MEDS: Zinc Sulfate 220 MG CAP PO SCH (08:53)
[2021-03-03] MEDS: Cholecalciferol 1,000 UNITS (25 MCG) TAB PO SCH (08:53)
[2021-03-03] MEDS: Ondansetron ODT 4 MG TAB PO PRN ×2 (08:53→16:17)
[2021-03-03] MEDS: clonazePAM 0.5 MG TAB PO SCH ×3 (08:53→20:55)
[2021-03-03] MEDS: FLUoxetine HCl 10 MG CAP PO SCH (08:54)
[2021-03-03] MEDS: Dexamethasone 4 mg/ml Vial SLOW IVP SCH (08:54)
[2021-03-03] MEDS: Enoxaparin Sodium 40 MG/0.4 ML SYRINGE SC SCH ×2 (08:54→20:54)
[2021-03-03] MEDS: Pregabalin 75 MG CAP PO SCH ×3 (08:55→20:55)
[2021-03-03] MEDS: Ivermectin 3 MG TAB PO SCH (09:23)
[2021-03-03] MEDS: BARICITINIB 2 MG TAB PO SCH (09:23)
[2021-03-03] MEDS: Colchicine 0.6 MG TAB PO SCH ×2 (09:24→20:55)
[2021-03-04] MEDS: ALPRAZolam 0.25 MG TAB PO PRN ×2 (00:35→08:13)
[2021-03-04] MEDS: Albuterol 200 PUFF (6.7GM INHALER) INH SCH ×4 (00:50→19:33)
[2021-03-04] MEDS: Morphine 2 MG/ML VIAL SLOW IVP PRN ×3 (02:25→10:19)
[2021-03-04] MEDS: Ondansetron PF 4 MG/2 ML Vial IVP PRN (04:10)
[2021-03-04] MEDS: HYDROcodone/Acetaminophen 5/325 mg Tablet PO PRN (04:10)
[2021-03-04] MEDS: hydrOXYzine 25 MG TAB PO PRN (04:25)
[2021-03-04] MEDS: Mometasone 200 MCG/Formoterol 5 MCG 120 PUFF INHALER INH SCH ×2 (06:08→19:34)
[2021-03-04] MEDS: Acetaminophen 325 MG TAB PO PRN (06:19)
[2021-03-04] MEDS: Zinc Sulfate 220 MG CAP PO SCH (07:57)
[2021-03-04] MEDS: Pregabalin 75 MG CAP PO SCH ×3 (07:57→20:59)
[2021-03-04] MEDS: Ascorbic Acid 500 mg Chewable Tablet PO SCH ×2 (07:57→08:00)
[2021-03-04] MEDS: Cholecalciferol 1,000 UNITS (25 MCG) TAB PO SCH (07:59)
[2021-03-04] MEDS: clonazePAM 0.5 MG TAB PO SCH ×3 (08:00→20:12)
[2021-03-04] MEDS: FLUoxetine HCl 10 MG CAP PO SCH (08:00)
[2021-03-04] MEDS: Colchicine 0.6 MG TAB PO SCH ×2 (08:00→20:59)
[2021-03-04] MEDS: Aspirin 81 mg Enteric Coated Tablet PO SCH (08:00)
[2021-03-04] MEDS: Enoxaparin Sodium 40 MG/0.4 ML SYRINGE SC SCH ×2 (08:01→21:00)
[2021-03-04] MEDS: Ivermectin 3 MG TAB PO SCH (08:12)
[2021-03-04] MEDS: BARICITINIB 2 MG TAB PO SCH (11:23)
[2021-03-04] MEDS ORDERED: Dexamethasone 4 mg/ml Vial SLOW IVP SCH ×2 (12:15→18:00)
[2021-03-04] MEDS ORDERED: Norepinephrine 8 MG/0.9% NS 250 ML ONE (12:38)
[2021-03-04] MEDS ORDERED: Propofol 1,000 MG/100 ML VIAL IV ONE ×2 (12:38→12:41)
[2021-03-04] MEDS ORDERED: Midazolam HCl 2 mg/2 ml Vial ONE (12:40)
[2021-03-04] MEDS ORDERED: Fentanyl 100 MCG/2 ML VIAL ONE (12:40)
[2021-03-04 13:56] LABS: Actual Bicarbonate (HCO3a) 27.8 mEq/L (22-28); Base Excess (BEa) 3.2 mEq/L (-2.0 to +3.0); CO2 Tension 42.9 mmHg (35.0-45.0); Carboxyhemoglobin (COHb) 0.2 gm% (0.0-3.0); Hemoglobin (Hb) 11.3 g/dL (12.0-16.0); O2 Tension (PaO2), arterial 67.2 mmHg (80.0-100.0); Potassium - ABG Lab 3.37 mmol/L (3.70-5.30); pH, Arterial 7.43 (7.35-7.45)
[2021-03-04 13:57] LABS: ALV-art Gradient 592.175 mmHg (0-20); Puncture Site LBA
[2021-03-04] MEDS ORDERED: Sterile Water 10 ML ONE ×2 (15:47→22:55)
[2021-03-04] MEDS ORDERED: Vecuronium 10 MG VIAL ONE (15:47)
[2021-03-04] MEDS ORDERED: Vecuronium 10 MG VIAL IV SCH (16:00)
[2021-03-04] MEDS ORDERED: Vecuronium 10 MG VIAL IV PRN (16:26)
[2021-03-04] MEDS: cloNIDine 0.1 MG TAB PO SCH (20:59)
[2021-03-04] MEDS: Dexamethasone 4 mg/ml Vial SLOW IVP SCH (20:59)
[2021-03-04] MEDS: Propofol 1,000 MG/100 ML VIAL IV PRN (21:00)
[2021-03-04] MEDS: Vecuronium 10 MG VIAL IV PRN (22:57)
[2021-03-05] MEDS: Propofol 1,000 MG/100 ML VIAL IV PRN ×9 (00:26→23:51)
[2021-03-05] MEDS: Albuterol 200 PUFF (6.7GM INHALER) INH SCH ×4 (01:20→19:04)
[2021-03-05] MEDS ORDERED: Sterile Water 10 ML ONE (02:13)
[2021-03-05] MEDS: Vecuronium 10 MG VIAL IV PRN (02:15)
[2021-03-05 04:24] LABS: #Lymphocytes 0.1 thou/uL (1.20-3.40); #Monocytes 0.1 thou/uL (0.11-0.59); #Neutrophils 6.3 thou/uL (1.40-6.50); %Eosinophils 0.2 % (0.0-10.0); %Lymphocytes 1.6 % (21.0-51.0); %Monocytes 1.1 % (0.0-10.0); %Neutrophils 97.2 % (42.0-75.0); Hemoglobin 10.3 g/dL (12.0-16.0); Mean Corpuscular HGB CONC 31.6 g/dL (32.0-36.0); Mean Corpuscular Hemoglobin 25.1 pg (27.0-31.0); Mean Corpuscular Volume 79.5 fL (78.0-98.0); Mean Platelet Volume 9.1 fL (7.4-10.4); Platelet Count 341 thou/uL (130-400); RBC Distribution Width 14.2 % (11.5-14.5); Red Blood Cell (RBC) Count 4.09 mill/uL (4.20-5.40); White Blood Cell (WBC) Count 6.5 thou/uL (4.8-10.8)
[2021-03-05 04:49] LABS: ALT (SGPT) 28 U/L (8-55); AST (SGOT) 24 U/L (5-34); Albumin 2.6 g/dL (3.5-5.0); Alkaline Phosphatase 119 U/L (40-110); Anion Gap 9 mmol/L (10-20); BUN (Urea Nitrogen) 8 mg/dL (7.0-18.7); Bilirubin, Total 0.4 mg/dL (0.2-1.2); Calc. Creatinine Clearance 241 mL/min (70-130); Calcium 8.3 mg/dL (7.8-10.44); Carbon Dioxide 31 mmol/L (22-29); Chloride 103 mmol/L (98-107); Globulin 3.2 g/dL (2.4-3.5); Glucose 136 mg/dL (70-105); Magnesium 2.1 mg/dL (1.6-2.6); Phosphorus 3.9 mg/dL (2.3-4.7); Potassium 3.9 mmol/L (3.5-5.1); Protein, Total 5.8 g/dL (6.0-8.3); Sodium 139 mmol/L (136-145)
[2021-03-05] MEDS: Enoxaparin Sodium 40 MG/0.4 ML SYRINGE SC SCH ×2 (08:21→20:49)
[2021-03-05] MEDS: clonazePAM 0.5 MG TAB PO SCH ×3 (08:21→20:51)
[2021-03-05] MEDS: Colchicine 0.6 MG TAB PO SCH ×2 (08:21→20:51)
[2021-03-05] MEDS: Dexamethasone 4 mg/ml Vial SLOW IVP SCH ×2 (08:22→20:51)
[2021-03-05] MEDS: Ascorbic Acid 500 mg Chewable Tablet PO SCH (08:23)
[2021-03-05] MEDS: Zinc Sulfate 220 MG CAP PO SCH (08:23)
[2021-03-05] MEDS: Cholecalciferol 1,000 UNITS (25 MCG) TAB PO SCH (08:23)
[2021-03-05] MEDS: FLUoxetine HCl 10 MG CAP PO SCH (08:23)
[2021-03-05] MEDS: Pregabalin 75 MG CAP PO SCH ×3 (08:24→20:49)
[2021-03-05] MEDS: BARICITINIB 2 MG TAB PO SCH (08:24)
[2021-03-05] MEDS: Aspirin 81 mg Enteric Coated Tablet PO SCH (08:24)
[2021-03-05] MEDS: Mometasone 200 MCG/Formoterol 5 MCG 120 PUFF INHALER INH SCH ×2 (08:55→19:04)
[2021-03-05 09:06] LABS: Actual Bicarbonate (HCO3a) 29.9 mEq/L (22-28); Base Excess (BEa) 5.8 mEq/L (-2.0 to +3.0); CO2 Tension 41.7 mmHg (35.0-45.0); Calcium, Ionized (arterial) 1.16 mmol/L (1.12-1.30); Carboxyhemoglobin (COHb) 0.3 gm% (0.0-3.0); Hemoglobin (Hb) 10.9 g/dL (12.0-16.0); Potassium - ABG Lab 4.07 mmol/L (3.70-5.30); pH, Arterial 7.47 (7.35-7.45)
[2021-03-05 09:10] LABS: ALV-art Gradient 176.675 mmHg (0-20); O2 Tension (PaO2), arterial 56.4 mmHg (80.0-100.0); Puncture Site RRA
[2021-03-05] MEDS: Ivermectin 3 MG TAB PO SCH (09:13)
[2021-03-05] MEDS: cloNIDine 0.1 MG TAB PO SCH (20:50)
[2021-03-06] MEDS: Albuterol 200 PUFF (6.7GM INHALER) INH SCH ×5 (01:04→23:45)
[2021-03-06] MEDS: Propofol 1,000 MG/100 ML VIAL IV PRN ×8 (03:04→18:41)
[2021-03-06 04:41] LABS: ALT (SGPT) 19 U/L (8-55); AST (SGOT) 12 U/L (5-34); Albumin 2.6 g/dL (3.5-5.0); Alkaline Phosphatase 92 U/L (40-110); Bilirubin, Direct 0.2 mg/dL (0.1-0.3); Bilirubin, Total 0.3 mg/dL (0.2-1.2); Protein, Total 5.6 g/dL (6.0-8.3)
[2021-03-06] MEDS: Mometasone 200 MCG/Formoterol 5 MCG 120 PUFF INHALER INH SCH (08:31)
[2021-03-06] MEDS ORDERED: Fentanyl CADD 100 ML ONE ×2 (08:36→19:22)
[2021-03-06] MEDS ORDERED: Morphine 2 MG/ML VIAL SLOW IVP PRN (08:45)
[2021-03-06] MEDS ORDERED: Fentanyl BOLUS 250 ML IVPB PRN (08:45)
[2021-03-06] MEDS ORDERED: Ventilator Sedation Protocol 1 EACH FS SCH (08:45)
[2021-03-06] MEDS ORDERED: Propofol BOLUS 1,000 MG/100 ML VIAL IV PRN (08:45)
[2021-03-06] MEDS: Vecuronium 10 MG VIAL IV PRN ×7 (08:45→16:32)
[2021-03-06] MEDS: Fentanyl CADD 100 ML IV SCH ×2 (08:45→19:40)
[2021-03-06 09:06] LABS: Actual Bicarbonate (HCO3a) 29.1 mEq/L (22-28); Base Excess (BEa) 5.6 mEq/L (-2.0 to +3.0); CO2 Tension 38.3 mmHg (35.0-45.0); Carboxyhemoglobin (COHb) 0.3 gm% (0.0-3.0); Hemoglobin (Hb) 10.5 g/dL (12.0-16.0); O2 Tension (PaO2), arterial 79.7 mmHg (80.0-100.0)
[2021-03-06 09:07] LABS: Calcium, Ionized (arterial) 1.12 mmol/L (1.12-1.30); Potassium - ABG Lab 3.92 mmol/L (3.70-5.30); Puncture Site RRA
[2021-03-06 09:08] LABS: ALV-art Gradient 157.625 mmHg (0-20)
[2021-03-06] MEDS: Ascorbic Acid 500 mg Chewable Tablet PO SCH (09:42)
[2021-03-06] MEDS: BARICITINIB 2 MG TAB PO SCH (09:42)
[2021-03-06] MEDS: Acetaminophen 325 MG TAB PO PRN (09:43)
[2021-03-06] MEDS: Colchicine 0.6 MG TAB PO SCH ×2 (09:44→21:45)
[2021-03-06] MEDS: Cholecalciferol 1,000 UNITS (25 MCG) TAB PO SCH (09:44)
[2021-03-06] MEDS: Enoxaparin Sodium 40 MG/0.4 ML SYRINGE SC SCH ×2 (09:45→21:45)
[2021-03-06] MEDS: Dexamethasone 4 mg/ml Vial SLOW IVP SCH ×2 (09:45→21:46)
[2021-03-06] MEDS: FLUoxetine HCl 10 MG CAP PO SCH (09:46)
[2021-03-06] MEDS: Pregabalin 75 MG CAP PO SCH ×3 (09:46→21:45)
[2021-03-06] MEDS: Polyethylene Glycol 3350 17 GM Packet PER TUBE SCH (09:46)
[2021-03-06] MEDS: Zinc Sulfate 220 MG CAP PO SCH (09:48)
[2021-03-06] MEDS: Senokot S 8.6-50 MG TAB PO SCH ×2 (09:48→21:45)
[2021-03-06] MEDS: Pantoprazole 40 MG GRANULES PACKET PO SCH (10:00)
[2021-03-06] MEDS: Aspirin Chewable 81 MG TAB PO SCH (10:00)
[2021-03-06] MEDS: Lorazepam 2 MG/ML VIAL SLOW IVP PRN ×6 (10:00→16:32)
[2021-03-06] MEDS: Amlodipine 5 MG TAB PER TUBE SCH (11:07)
[2021-03-06 11:23] LABS: Anion Gap 12 mmol/L (10-20); BUN (Urea Nitrogen) 12 mg/dL (7.0-18.7); Calc. Creatinine Clearance 224 mL/min (70-130); Calcium 8.3 mg/dL (7.8-10.44); Carbon Dioxide 30 mmol/L (22-29); Chloride 103 mmol/L (98-107); Glucose 111 mg/dL (70-105); Potassium 3.5 mmol/L (3.5-5.1); Sodium 141 mmol/L (136-145)
[2021-03-06 11:31] LABS: Hemoglobin 9.6 g/dL (12.0-16.0); Mean Corpuscular HGB CONC 31.2 g/dL (32.0-36.0); Mean Corpuscular Hemoglobin 24.7 pg (27.0-31.0); Mean Corpuscular Volume 79.2 fL (78.0-98.0); Mean Platelet Volume 9.3 fL (7.4-10.4); Platelet Count 448 thou/uL (130-400); RBC Distribution Width 14.4 % (11.5-14.5); Red Blood Cell (RBC) Count 3.89 mill/uL (4.20-5.40); White Blood Cell (WBC) Count 14.3 thou/uL (4.8-10.8)
[2021-03-06 12:04] LABS: Band 5 % (5-11); Lymphocytes 3 % (21-51); MDiff Complete? YES; Monocytes 7 % (0-10); Neutrophil 85 % (42-75); Ovalocytes SLIGHT = 2-5 cells (100X) (0-1/hpf); Platelet Morphology Comment Appears Increased; Polychromasia SLIGHT = 2-3 cells (100X) (0-2/hpf)
[2021-03-06] MEDS: Ivermectin 3 MG TAB PO SCH (18:09)
[2021-03-06] MEDS: cloNIDine 0.1 MG TAB PO SCH (21:45)
[2021-03-07] MEDS: Propofol 1,000 MG/100 ML VIAL IV PRN ×6 (01:46→19:09)
[2021-03-07 04:49] LABS: #Lymphocytes 0.2 thou/uL (1.20-3.40); #Monocytes 0.3 thou/uL (0.11-0.59); #Neutrophils 6.5 thou/uL (1.40-6.50); %Basophils 0.4 % (0.0-1.0); %Eosinophils 0.5 % (0.0-10.0); %Lymphocytes 2.9 % (21.0-51.0); %Monocytes 3.7 % (0.0-10.0); %Neutrophils 92.5 % (42.0-75.0); Hemoglobin 9.3 g/dL (12.0-16.0); Mean Corpuscular HGB CONC 31.7 g/dL (32.0-36.0); Mean Corpuscular Hemoglobin 25.4 pg (27.0-31.0); Mean Corpuscular Volume 80.3 fL (78.0-98.0); Mean Platelet Volume 9.5 fL (7.4-10.4); Platelet Count 361 thou/uL (130-400); RBC Distribution Width 14.4 % (11.5-14.5); Red Blood Cell (RBC) Count 3.64 mill/uL (4.20-5.40); White Blood Cell (WBC) Count 7.1 thou/uL (4.8-10.8)
[2021-03-07 04:53] LABS: ALT (SGPT) 102 U/L (8-55); AST (SGOT) 118 U/L (5-34); Albumin 2.7 g/dL (3.5-5.0); Alkaline Phosphatase 178 U/L (40-110); Anion Gap 10 mmol/L (10-20); BUN (Urea Nitrogen) 11 mg/dL (7.0-18.7); Bilirubin, Total 0.7 mg/dL (0.2-1.2); Calc. Creatinine Clearance 255 mL/min (70-130); Calcium 8.4 mg/dL (7.8-10.44); Carbon Dioxide 34 mmol/L (22-29); Chloride 101 mmol/L (98-107); Globulin 3.1 g/dL (2.4-3.5); Glucose 128 mg/dL (70-105); Potassium 4.9 mmol/L (3.5-5.1); Protein, Total 5.8 g/dL (6.0-8.3); Sodium 140 mmol/L (136-145)
[2021-03-07] MEDS: Vecuronium 10 MG VIAL IV PRN ×4 (05:00→19:38)
[2021-03-07] MEDS: Albuterol 200 PUFF (6.7GM INHALER) INH SCH ×3 (07:39→19:05)
[2021-03-07] MEDS: Ascorbic Acid 500 mg Chewable Tablet PO SCH (07:41)
[2021-03-07] MEDS: Dexamethasone 4 mg/ml Vial SLOW IVP SCH ×2 (07:41→21:06)
[2021-03-07] MEDS: Enoxaparin Sodium 40 MG/0.4 ML SYRINGE SC SCH ×2 (07:41→21:05)
[2021-03-07] MEDS: Pantoprazole 40 MG GRANULES PACKET PO SCH (07:41)
[2021-03-07] MEDS: FLUoxetine HCl 10 MG CAP PO SCH (07:42)
[2021-03-07] MEDS: Cholecalciferol 1,000 UNITS (25 MCG) TAB PO SCH (07:42)
[2021-03-07] MEDS: BARICITINIB 2 MG TAB PO SCH (07:43)
[2021-03-07] MEDS: Colchicine 0.6 MG TAB PO SCH ×2 (07:43→21:06)
[2021-03-07] MEDS: Acetaminophen 325 MG TAB PO PRN (07:43)
[2021-03-07] MEDS: Pregabalin 75 MG CAP PO SCH ×3 (07:43→21:07)
[2021-03-07] MEDS: Zinc Sulfate 220 MG CAP PO SCH (07:43)
[2021-03-07] MEDS: Polyethylene Glycol 3350 17 GM Packet PER TUBE SCH (07:45)
[2021-03-07] MEDS: Senokot S 8.6-50 MG TAB PO SCH ×2 (07:45→21:07)
[2021-03-07] MEDS: Aspirin Chewable 81 MG TAB PO SCH (07:48)
[2021-03-07 08:12] LABS: Actual Bicarbonate (HCO3a) 26.1 mEq/L (22-28); Base Excess (BEa) 0.1 mEq/L (-2.0 to +3.0); CO2 Tension 47.3 mmHg (35.0-45.0); Calcium, Ionized (arterial) 1.15 mmol/L (1.12-1.30); Carboxyhemoglobin (COHb) 0.5 gm% (0.0-3.0); Potassium - ABG Lab 4.77 mmol/L (3.70-5.30); pH, Arterial 7.36 (7.35-7.45)
[2021-03-07 08:13] LABS: ALV-art Gradient 223.375 mmHg (0-20); Puncture Site RRA
[2021-03-07] MEDS: Lorazepam 2 MG/ML VIAL SLOW IVP PRN ×3 (12:50→21:39)
[2021-03-07] MEDS: Amlodipine 5 MG TAB PER TUBE SCH (14:04)
[2021-03-07] MEDS: cloNIDine 0.1 MG TAB PO SCH (21:06)
[2021-03-08] MEDS: Albuterol 200 PUFF (6.7GM INHALER) INH SCH ×4 (00:06→18:30)
[2021-03-08] MEDS: Propofol 1,000 MG/100 ML VIAL IV PRN ×6 (01:44→18:25)
[2021-03-08] MEDS: Lorazepam 2 MG/ML VIAL SLOW IVP PRN ×3 (05:21→11:46)
[2021-03-08] MEDS: Vecuronium 10 MG VIAL IV PRN ×2 (05:21→07:38)
[2021-03-08] MEDS ORDERED: Fentanyl CADD 100 ML ONE (05:39)
[2021-03-08] MEDS: Fentanyl CADD 100 ML IV SCH (05:42)
[2021-03-08 07:05] LABS: #Lymphocytes 0.5 thou/uL (1.20-3.40); #Monocytes 0.7 thou/uL (0.11-0.59); %Basophils 0.1 % (0.0-1.0); %Eosinophils 0.6 % (0.0-10.0); %Lymphocytes 5.6 % (21.0-51.0); %Neutrophils 85.7 % (42.0-75.0); Hemoglobin 9.4 g/dL (12.0-16.0); Mean Corpuscular HGB CONC 30.6 g/dL (32.0-36.0); Mean Corpuscular Hemoglobin 24.1 pg (27.0-31.0); Mean Platelet Volume 8.8 fL (7.4-10.4); Platelet Count 500 thou/uL (130-400); RBC Distribution Width 14.5 % (11.5-14.5); Red Blood Cell (RBC) Count 3.89 mill/uL (4.20-5.40); White Blood Cell (WBC) Count 8.2 thou/uL (4.8-10.8)
[2021-03-08 07:17] LABS: ALT (SGPT) 58 U/L (8-55); AST (SGOT) 24 U/L (5-34); Albumin 2.6 g/dL (3.5-5.0); Alkaline Phosphatase 133 U/L (40-110); Anion Gap 8 mmol/L (10-20); BUN (Urea Nitrogen) 15 mg/dL (7.0-18.7); Bilirubin, Total 0.3 mg/dL (0.2-1.2); Calc. Creatinine Clearance 244 mL/min (70-130); Calcium 8.3 mg/dL (7.8-10.44); Carbon Dioxide 36 mmol/L (22-29); Chloride 99 mmol/L (98-107); Glucose 99 mg/dL (70-105); Potassium 4.8 mmol/L (3.5-5.1); Protein, Total 5.6 g/dL (6.0-8.3); Sodium 138 mmol/L (136-145)
[2021-03-08 08:00] LABS: Actual Bicarbonate (HCO3a) 37.2 mEq/L (22-28); Base Excess (BEa) 11.5 mEq/L (-2.0 to +3.0); CO2 Tension 55.7 mmHg (35.0-45.0); Calcium, Ionized (arterial) 1.12 mmol/L (1.12-1.30); Carboxyhemoglobin (COHb) 0.2 gm% (0.0-3.0); Hemoglobin (Hb) 10.4 g/dL (12.0-16.0); O2 Tension (PaO2), arterial 97.9 mmHg (80.0-100.0); Potassium - ABG Lab 4.24 mmol/L (3.70-5.30); Puncture Site RRA; pH, Arterial 7.44 (7.35-7.45)
[2021-03-08 08:01] LABS: ALV-art Gradient 260.275 mmHg (0-20)
[2021-03-08 08:02] LABS: Microcytosis SLIGHT = 6-15 cells (100X) (0-5/hpf); Ovalocytes SLIGHT = 2-5 cells (100X) (0-1/hpf); Platelet Morphology Comment Appears Increased; Polychromasia SLIGHT = 2-3 cells (100X) (0-2/hpf)
[2021-03-08] MEDS: Colchicine 0.6 MG TAB PO SCH ×2 (08:41→20:08)
[2021-03-08] MEDS: Zinc Sulfate 220 MG CAP PO SCH (08:41)
[2021-03-08] MEDS: Cholecalciferol 1,000 UNITS (25 MCG) TAB PO SCH (08:41)
[2021-03-08] MEDS: Pantoprazole 40 MG GRANULES PACKET PO SCH (08:41)
[2021-03-08] MEDS: Polyethylene Glycol 3350 17 GM Packet PER TUBE SCH (08:41)
[2021-03-08] MEDS: FLUoxetine HCl 10 MG CAP PO SCH (08:41)
[2021-03-08] MEDS: Senokot S 8.6-50 MG TAB PO SCH ×2 (08:42→20:09)
[2021-03-08] MEDS: BARICITINIB 2 MG TAB PO SCH (08:42)
[2021-03-08] MEDS: Pregabalin 75 MG CAP PO SCH ×3 (08:42→20:07)
[2021-03-08] MEDS: Aspirin Chewable 81 MG TAB PO SCH (08:42)
[2021-03-08] MEDS: Ascorbic Acid 500 mg Chewable Tablet PO SCH (08:43)
[2021-03-08] MEDS: Dexamethasone 4 mg/ml Vial SLOW IVP SCH ×2 (09:00→20:07)
[2021-03-08] MEDS: Enoxaparin Sodium 40 MG/0.4 ML SYRINGE SC SCH ×2 (09:00→20:08)
[2021-03-08] MEDS: Amlodipine 5 MG TAB PER TUBE SCH (12:45)
[2021-03-08] MEDS: cloNIDine 0.1 MG TAB PO SCH (20:09)
[2021-03-09] MEDS: Albuterol 200 PUFF (6.7GM INHALER) INH SCH ×5 (00:25→23:10)
[2021-03-09] MEDS: Propofol 1,000 MG/100 ML VIAL IV PRN ×7 (00:43→20:41)
[2021-03-09 04:41] LABS: #Eosinphils 0.1 thou/uL (0.0-0.7); #Lymphocytes 0.5 thou/uL (1.20-3.40); #Monocytes 0.9 thou/uL (0.11-0.59); #Neutrophils 10.6 thou/uL (1.40-6.50); %Basophils 0.1 % (0.0-1.0); %Eosinophils 0.8 % (0.0-10.0); %Lymphocytes 3.8 % (21.0-51.0); %Monocytes 7.1 % (0.0-10.0); %Neutrophils 88.3 % (42.0-75.0); Hemoglobin 9.6 g/dL (12.0-16.0); Mean Corpuscular HGB CONC 31.4 g/dL (32.0-36.0); Mean Corpuscular Hemoglobin 24.6 pg (27.0-31.0); Mean Corpuscular Volume 78.5 fL (78.0-98.0); Mean Platelet Volume 8.7 fL (7.4-10.4); Platelet Count 456 thou/uL (130-400); RBC Distribution Width 14.5 % (11.5-14.5); Red Blood Cell (RBC) Count 3.92 mill/uL (4.20-5.40)
[2021-03-09 05:04] LABS: ALT (SGPT) 42 U/L (8-55); AST (SGOT) 18 U/L (5-34); Albumin 2.7 g/dL (3.5-5.0); Alkaline Phosphatase 115 U/L (40-110); Anion Gap 7 mmol/L (10-20); BUN (Urea Nitrogen) 15 mg/dL (7.0-18.7); Bilirubin, Direct 0.1 mg/dL (0.1-0.3); Bilirubin, Total 0.3 mg/dL (0.2-1.2); Calc. Creatinine Clearance 258 mL/min (70-130); Calcium 8.6 mg/dL (7.8-10.44); Carbon Dioxide 37 mmol/L (22-29); Chloride 97 mmol/L (98-107); Globulin 3.1 g/dL (2.4-3.5); Glucose 107 mg/dL (70-105); Potassium 4.4 mmol/L (3.5-5.1); Protein, Total 5.8 g/dL (6.0-8.3); Sodium 137 mmol/L (136-145)
[2021-03-09] MEDS: BARICITINIB 2 MG TAB PO SCH (08:00)
[2021-03-09] MEDS: Enoxaparin Sodium 40 MG/0.4 ML SYRINGE SC SCH ×2 (08:00→20:40)
[2021-03-09] MEDS: Polyethylene Glycol 3350 17 GM Packet PER TUBE SCH (08:00)
[2021-03-09] MEDS: Zinc Sulfate 220 MG CAP PO SCH ×2 (08:01→09:00)
[2021-03-09] MEDS: Pantoprazole 40 MG GRANULES PACKET PO SCH ×2 (08:01→09:00)
[2021-03-09] MEDS: Aspirin Chewable 81 MG TAB PO SCH ×2 (08:01→09:00)
[2021-03-09] MEDS: Lorazepam 2 MG/ML VIAL SLOW IVP PRN ×5 (08:01→20:41)
[2021-03-09] MEDS: Colchicine 0.6 MG TAB PO SCH ×3 (08:01→20:40)
[2021-03-09] MEDS: Ascorbic Acid 500 mg Chewable Tablet PO SCH ×2 (08:02→09:00)
[2021-03-09] MEDS: Pregabalin 75 MG CAP PO SCH ×4 (08:02→20:40)
[2021-03-09] MEDS: Cholecalciferol 1,000 UNITS (25 MCG) TAB PO SCH ×2 (08:02→09:00)
[2021-03-09] MEDS: Acetaminophen 325 MG TAB PO PRN (08:02)
[2021-03-09] MEDS: FLUoxetine HCl 10 MG CAP PO SCH ×2 (08:02→09:00)
[2021-03-09] MEDS: Senokot S 8.6-50 MG TAB PO SCH ×3 (08:02→20:40)
[2021-03-09] MEDS: Dexamethasone 4 mg/ml Vial SLOW IVP SCH ×3 (08:03→20:41)
[2021-03-09 08:19] LABS: Actual Bicarbonate (HCO3a) 31.6 mEq/L (22-28); Base Excess (BEa) 7.5 mEq/L (-2.0 to +3.0); CO2 Tension 42.8 mmHg (35.0-45.0); Calcium, Ionized (arterial) 1.13 mmol/L (1.12-1.30); Carboxyhemoglobin (COHb) 0.2 gm% (0.0-3.0); Hemoglobin (Hb) 10.2 g/dL (12.0-16.0); O2 Tension (PaO2), arterial 81.3 mmHg (80.0-100.0); Potassium - ABG Lab 4.36 mmol/L (3.70-5.30); pH, Arterial 7.49 (7.35-7.45)
[2021-03-09 08:20] LABS: Puncture Site RRA
[2021-03-09] MEDS: Amlodipine 5 MG TAB PER TUBE SCH (14:25)
[2021-03-09] MEDS ORDERED: Fentanyl CADD 100 ML ONE (16:22)
[2021-03-09] MEDS: Fentanyl CADD 100 ML IV SCH (16:28)
[2021-03-09] MEDS: cloNIDine 0.1 MG TAB PO SCH (20:40)
[2021-03-10] MEDS: Propofol 1,000 MG/100 ML VIAL IV PRN ×8 (02:46→23:32)
[2021-03-10 04:40] LABS: #Eosinphils 0.1 thou/uL (0.0-0.7); #Lymphocytes 0.4 thou/uL (1.20-3.40); #Monocytes 0.6 thou/uL (0.11-0.59); #Neutrophils 9.5 thou/uL (1.40-6.50); %Eosinophils 0.9 % (0.0-10.0); %Lymphocytes 3.7 % (21.0-51.0); %Monocytes 5.5 % (0.0-10.0); Hemoglobin 9.4 g/dL (12.0-16.0); Mean Corpuscular HGB CONC 31.9 g/dL (32.0-36.0); Mean Corpuscular Hemoglobin 25.2 pg (27.0-31.0); Mean Corpuscular Volume 78.9 fL (78.0-98.0); Mean Platelet Volume 8.9 fL (7.4-10.4); Platelet Count 385 thou/uL (130-400); RBC Distribution Width 14.4 % (11.5-14.5); Red Blood Cell (RBC) Count 3.72 mill/uL (4.20-5.40); White Blood Cell (WBC) Count 10.6 thou/uL (4.8-10.8)
[2021-03-10 05:07] LABS: Anion Gap 12 mmol/L (10-20); BUN (Urea Nitrogen) 17 mg/dL (7.0-18.7); Calc. Creatinine Clearance 252 mL/min (70-130); Calcium 8.7 mg/dL (7.8-10.44); Carbon Dioxide 35 mmol/L (22-29); Chloride 95 mmol/L (98-107); Glucose 126 mg/dL (70-105); Potassium 4.6 mmol/L (3.5-5.1); Sodium 137 mmol/L (136-145)
[2021-03-10] MEDS: Albuterol 200 PUFF (6.7GM INHALER) INH SCH ×3 (08:20→19:40)
[2021-03-10 08:22] LABS: Actual Bicarbonate (HCO3a) 35.6 mEq/L (22-28); Base Excess (BEa) 10.6 mEq/L (-2.0 to +3.0); CO2 Tension 50.4 mmHg (35.0-45.0); Calcium, Ionized (arterial) 1.15 mmol/L (1.12-1.30); Carboxyhemoglobin (COHb) 0.4 gm% (0.0-3.0); Hemoglobin (Hb) 9.7 g/dL (12.0-16.0); O2 Tension (PaO2), arterial 64.5 mmHg (80.0-100.0); Potassium - ABG Lab 4.25 mmol/L (3.70-5.30); pH, Arterial 7.47 (7.35-7.45)
[2021-03-10] MEDS: BARICITINIB 2 MG TAB PO SCH (08:22)
[2021-03-10] MEDS: Ascorbic Acid 500 mg Chewable Tablet PO SCH (08:22)
[2021-03-10] MEDS: Aspirin Chewable 81 MG TAB PO SCH (08:22)
[2021-03-10] MEDS: Dexamethasone 4 mg/ml Vial SLOW IVP SCH ×2 (08:22→19:54)
[2021-03-10] MEDS: Colchicine 0.6 MG TAB PO SCH ×2 (08:22→19:55)
[2021-03-10 08:23] LABS: Puncture Site RRA
[2021-03-10] MEDS: Polyethylene Glycol 3350 17 GM Packet PER TUBE SCH (08:23)
[2021-03-10] MEDS: Zinc Sulfate 220 MG CAP PO SCH (08:23)
[2021-03-10] MEDS: Senokot S 8.6-50 MG TAB PO SCH ×3 (08:23→19:54)
[2021-03-10] MEDS: Pantoprazole 40 MG GRANULES PACKET PO SCH (08:23)
[2021-03-10] MEDS: Pregabalin 75 MG CAP PO SCH ×3 (08:26→19:56)
[2021-03-10] MEDS: FLUoxetine HCl 10 MG CAP PO SCH (08:26)
[2021-03-10] MEDS: Cholecalciferol 1,000 UNITS (25 MCG) TAB PO SCH (08:27)
[2021-03-10] MEDS: Enoxaparin Sodium 40 MG/0.4 ML SYRINGE SC SCH ×2 (08:34→19:53)
[2021-03-10] MEDS: Lorazepam 2 MG/ML VIAL SLOW IVP PRN ×2 (08:34→19:54)
[2021-03-10] MEDS: Amlodipine 5 MG TAB PER TUBE SCH (14:00)
[2021-03-10] MEDS: Fentanyl CADD 100 ML IV SCH (18:41)
[2021-03-10] MEDS: cloNIDine 0.1 MG TAB PO SCH (19:54)
[2021-03-11] MEDS: Albuterol 200 PUFF (6.7GM INHALER) INH SCH ×4 (00:53→18:44)
[2021-03-11] MEDS: Propofol 1,000 MG/100 ML VIAL IV PRN ×6 (04:43→20:21)
[2021-03-11 04:48] LABS: #Eosinphils 0.1 thou/uL (0.0-0.7); #Lymphocytes 0.6 thou/uL (1.20-3.40); #Monocytes 0.6 thou/uL (0.11-0.59); #Neutrophils 10.2 thou/uL (1.40-6.50); %Eosinophils 0.8 % (0.0-10.0); %Monocytes 5.1 % (0.0-10.0); %Neutrophils 89.1 % (42.0-75.0); Hemoglobin 9.3 g/dL (12.0-16.0); Mean Corpuscular Hemoglobin 25.2 pg (27.0-31.0); Mean Corpuscular Volume 78.8 fL (78.0-98.0); Mean Platelet Volume 9.1 fL (7.4-10.4); Platelet Count 354 thou/uL (130-400); RBC Distribution Width 14.5 % (11.5-14.5); Red Blood Cell (RBC) Count 3.69 mill/uL (4.20-5.40); White Blood Cell (WBC) Count 11.5 thou/uL (4.8-10.8)
[2021-03-11 05:14] LABS: BUN (Urea Nitrogen) 18 mg/dL (7.0-18.7); Calc. Creatinine Clearance 255 mL/min (70-130); Glucose 108 mg/dL (70-105)
[2021-03-11 05:25] LABS: Anion Gap 16 mmol/L (10-20); Carbon Dioxide 33 mmol/L (22-29); Chloride 92 mmol/L (98-107); Potassium 4.5 mmol/L (3.5-5.1); Sodium 136 mmol/L (136-145)
[2021-03-11 09:06] LABS: Actual Bicarbonate (HCO3a) 38.7 mEq/L (22-28); Base Excess (BEa) 12.4 mEq/L (-2.0 to +3.0); CO2 Tension 61.2 mmHg (35.0-45.0); Calcium, Ionized (arterial) 1.16 mmol/L (1.12-1.30); Carboxyhemoglobin (COHb) 0.1 gm% (0.0-3.0); Hemoglobin (Hb) 9.8 g/dL (12.0-16.0); O2 Tension (PaO2), arterial 72.5 mmHg (80.0-100.0); Potassium - ABG Lab 4.12 mmol/L (3.70-5.30); pH, Arterial 7.42 (7.35-7.45)
[2021-03-11 09:07] LABS: Puncture Site RRA
[2021-03-11] MEDS: Pantoprazole 40 MG GRANULES PACKET PO SCH (09:22)
[2021-03-11] MEDS: Enoxaparin Sodium 40 MG/0.4 ML SYRINGE SC SCH ×2 (09:22→20:22)
[2021-03-11] MEDS: Zinc Sulfate 220 MG CAP PO SCH (09:22)
[2021-03-11] MEDS: Aspirin Chewable 81 MG TAB PO SCH (09:22)
[2021-03-11] MEDS: Ascorbic Acid 500 mg Chewable Tablet PO SCH (09:22)
[2021-03-11] MEDS: Colchicine 0.6 MG TAB PO SCH ×2 (09:22→20:21)
[2021-03-11] MEDS: Dexamethasone 4 mg/ml Vial SLOW IVP SCH ×2 (09:22→20:21)
[2021-03-11] MEDS: Senokot S 8.6-50 MG TAB PO SCH ×2 (09:22→20:22)
[2021-03-11] MEDS: Polyethylene Glycol 3350 17 GM Packet PER TUBE SCH (09:22)
[2021-03-11] MEDS: Cholecalciferol 1,000 UNITS (25 MCG) TAB PO SCH (09:25)
[2021-03-11] MEDS: Pregabalin 75 MG CAP PO SCH ×3 (09:25→20:22)
[2021-03-11] MEDS: FLUoxetine HCl 10 MG CAP PO SCH (09:26)
[2021-03-11] MEDS: Fentanyl CADD 100 ML IV SCH ×2 (10:33→23:43)
[2021-03-11] MEDS: Lorazepam 2 MG/ML VIAL SLOW IVP PRN ×2 (11:25→20:22)
[2021-03-11] MEDS ORDERED: acetaZOLAMIDE Sodium 500 mg Vial IVP SCH (13:00)
[2021-03-11] MEDS ORDERED: Sterile Water 10 ML VIAL FS PRN (13:00)
[2021-03-11] MEDS: Amlodipine 5 MG TAB PER TUBE SCH (13:21)
[2021-03-11] MEDS: cloNIDine 0.1 MG TAB PO SCH (20:21)
[2021-03-11] MEDS ORDERED: Fentanyl CADD 100 ML ONE (22:51)
[2021-03-12] MEDS: Propofol 1,000 MG/100 ML VIAL IV PRN ×8 (00:19→22:22)
[2021-03-12] MEDS: Albuterol 200 PUFF (6.7GM INHALER) INH SCH ×5 (02:26→23:43)
[2021-03-12 04:28] LABS: ALT (SGPT) 28 U/L (8-55); AST (SGOT) 16 U/L (5-34); Alkaline Phosphatase 96 U/L (40-110); Bilirubin, Direct 0.2 mg/dL (0.1-0.3); Bilirubin, Total 0.3 mg/dL (0.2-1.2); Protein, Total 6.2 g/dL (6.0-8.3)
[2021-03-12] MEDS: Aspirin Chewable 81 MG TAB PO SCH (08:41)
[2021-03-12] MEDS: Dexamethasone 4 mg/ml Vial SLOW IVP SCH ×2 (08:41→20:00)
[2021-03-12] MEDS: Ascorbic Acid 500 mg Chewable Tablet PO SCH (08:41)
[2021-03-12] MEDS: Colchicine 0.6 MG TAB PO SCH ×2 (08:41→20:00)
[2021-03-12] MEDS: Cholecalciferol 1,000 UNITS (25 MCG) TAB PO SCH (08:41)
[2021-03-12] MEDS: Polyethylene Glycol 3350 17 GM Packet PER TUBE SCH (08:42)
[2021-03-12] MEDS: FLUoxetine HCl 10 MG CAP PO SCH (08:42)
[2021-03-12] MEDS: Pantoprazole 40 MG GRANULES PACKET PO SCH (08:42)
[2021-03-12] MEDS: Pregabalin 75 MG CAP PO SCH ×3 (08:42→20:00)
[2021-03-12] MEDS: Enoxaparin Sodium 40 MG/0.4 ML SYRINGE SC SCH (08:42)
[2021-03-12] MEDS: Senokot S 8.6-50 MG TAB PO SCH ×2 (08:43→20:00)
[2021-03-12] MEDS: Zinc Sulfate 220 MG CAP PO SCH (08:43)
[2021-03-12] MEDS ORDERED: Iopamidol-370 76% 500 ML 1 ML ONE (10:02)
[2021-03-12] MEDS: Fentanyl CADD 100 ML IV SCH ×2 (11:07→20:03)
[2021-03-12] MEDS: Lorazepam 2 MG/ML VIAL SLOW IVP PRN ×3 (11:42→22:23)
[2021-03-12] MEDS: Vecuronium 10 MG VIAL IV PRN ×5 (11:42→22:23)
[2021-03-12] MEDS ORDERED: Communication Order-Pharmacy FS ONE (13:10)
[2021-03-12] MEDS: Amlodipine 5 MG TAB PER TUBE SCH (13:32)
[2021-03-12 14:37] LABS: Hemoglobin 10.1 g/dL (12.0-16.0); Platelet Count 340 thou/uL (130-400)
[2021-03-12] MEDS ORDERED: Lidocaine 1% (PF) 30 ML VIAL ONE (16:18)
[2021-03-12] MEDS ORDERED: Fentanyl CADD 100 ML ONE (19:33)
[2021-03-12] MEDS: Enoxaparin Sodium 100 MG/ML SYRINGE SC SCH (20:00)
[2021-03-12] MEDS: cloNIDine 0.1 MG TAB PO SCH (20:01)
[2021-03-13] MEDS: Propofol 1,000 MG/100 ML VIAL IV PRN ×5 (02:16→20:45)
[2021-03-13 04:04] LABS: #Eosinphils 0.2 thou/uL (0.0-0.7); #Lymphocytes 0.4 thou/uL (1.20-3.40); #Monocytes 0.4 thou/uL (0.11-0.59); #Neutrophils 14.6 thou/uL (1.40-6.50); %Eosinophils 1.3 % (0.0-10.0); %Lymphocytes 2.3 % (21.0-51.0); %Monocytes 2.7 % (0.0-10.0); %Neutrophils 93.7 % (42.0-75.0); Hemoglobin 9.1 g/dL (12.0-16.0); Mean Corpuscular HGB CONC 31.6 g/dL (32.0-36.0); Mean Corpuscular Hemoglobin 25.1 pg (27.0-31.0); Mean Corpuscular Volume 79.4 fL (78.0-98.0); Mean Platelet Volume 9.4 fL (7.4-10.4); Platelet Count 307 thou/uL (130-400); RBC Distribution Width 15.3 % (11.5-14.5); Red Blood Cell (RBC) Count 3.65 mill/uL (4.20-5.40); White Blood Cell (WBC) Count 15.6 thou/uL (4.8-10.8)
[2021-03-13 04:23] LABS: Anion Gap 9 mmol/L (10-20); BUN (Urea Nitrogen) 17 mg/dL (7.0-18.7); Calc. Creatinine Clearance 260 mL/min (70-130); Calcium 8.9 mg/dL (7.8-10.44); Carbon Dioxide 37 mmol/L (22-29); Chloride 93 mmol/L (98-107); Glucose 119 mg/dL (70-105); Potassium 4.2 mmol/L (3.5-5.1); Sodium 135 mmol/L (136-145)
[2021-03-13 06:56] LABS: CO2 Tension 57.1 mmHg (35.0-45.0); Calcium, Ionized (arterial) 1.19 mmol/L (1.12-1.30); Carboxyhemoglobin (COHb) 0.2 gm% (0.0-3.0); Hemoglobin (Hb) 10.6 g/dL (12.0-16.0); Potassium - ABG Lab 3.98 mmol/L (3.70-5.30); pH, Arterial 7.43 (7.35-7.45)
[2021-03-13] MEDS: Albuterol 200 PUFF (6.7GM INHALER) INH SCH ×4 (07:02→23:59)
[2021-03-13 07:04] LABS: Puncture Site RRA
[2021-03-13 07:05] LABS: ALV-art Gradient 291.425 mmHg (0-20)
[2021-03-13] MEDS: Senokot S 8.6-50 MG TAB PO SCH ×2 (08:38→20:47)
[2021-03-13] MEDS: Aspirin Chewable 81 MG TAB PO SCH (08:38)
[2021-03-13] MEDS: Pregabalin 75 MG CAP PO SCH ×3 (08:39→20:46)
[2021-03-13] MEDS: Enoxaparin Sodium 100 MG/ML SYRINGE SC SCH (08:40)
[2021-03-13] MEDS: Colchicine 0.6 MG TAB PO SCH ×2 (08:40→20:46)
[2021-03-13] MEDS: Zinc Sulfate 220 MG CAP PO SCH (08:40)
[2021-03-13] MEDS: Ascorbic Acid 500 mg Chewable Tablet PO SCH (08:40)
[2021-03-13] MEDS: Pantoprazole 40 MG GRANULES PACKET PO SCH (08:40)
[2021-03-13] MEDS: FLUoxetine HCl 10 MG CAP PO SCH (08:40)
[2021-03-13] MEDS: Cholecalciferol 1,000 UNITS (25 MCG) TAB PO SCH (08:40)
[2021-03-13] MEDS: Dexamethasone 4 mg/ml Vial SLOW IVP SCH ×2 (08:41→20:47)
[2021-03-13] MEDS: Polyethylene Glycol 3350 17 GM Packet PER TUBE SCH (08:46)
[2021-03-13] MEDS ORDERED: Fentanyl CADD 100 ML ONE (12:26)
[2021-03-13] MEDS: Fentanyl CADD 100 ML IV SCH (12:35)
[2021-03-13] MEDS: Amlodipine 5 MG TAB PER TUBE SCH (13:37)
[2021-03-13] MEDS: cloNIDine 0.1 MG TAB PO SCH (20:46)
[2021-03-13] MEDS: Enoxaparin Sodium 40 MG/0.4 ML SYRINGE SC SCH (20:46)
[2021-03-14] MEDS: Propofol 1,000 MG/100 ML VIAL IV PRN ×7 (00:48→23:24)
[2021-03-14] MEDS: Lorazepam 2 MG/ML VIAL SLOW IVP PRN ×4 (01:11→20:41)
[2021-03-14] MEDS: Vecuronium 10 MG VIAL IV PRN ×2 (03:45→20:41)
[2021-03-14 05:02] LABS: #Eosinphils 0.1 thou/uL (0.0-0.7); #Lymphocytes 0.6 thou/uL (1.20-3.40); #Monocytes 0.6 thou/uL (0.11-0.59); #Neutrophils 13.4 thou/uL (1.40-6.50); %Eosinophils 0.7 % (0.0-10.0); %Monocytes 3.8 % (0.0-10.0); %Neutrophils 91.4 % (42.0-75.0); Mean Corpuscular HGB CONC 31.7 g/dL (32.0-36.0); Mean Corpuscular Hemoglobin 25.2 pg (27.0-31.0); Mean Corpuscular Volume 79.7 fL (78.0-98.0); Mean Platelet Volume 9.8 fL (7.4-10.4); Platelet Count 268 thou/uL (130-400); RBC Distribution Width 15.6 % (11.5-14.5); Red Blood Cell (RBC) Count 3.55 mill/uL (4.20-5.40); White Blood Cell (WBC) Count 14.7 thou/uL (4.8-10.8)
[2021-03-14 05:28] LABS: Anion Gap 12 mmol/L (10-20); BUN (Urea Nitrogen) 20 mg/dL (7.0-18.7); Calc. Creatinine Clearance 237 mL/min (70-130); Calcium 8.9 mg/dL (7.8-10.44); Carbon Dioxide 34 mmol/L (22-29); Chloride 94 mmol/L (98-107); Glucose 123 mg/dL (70-105); Potassium 3.7 mmol/L (3.5-5.1); Sodium 136 mmol/L (136-145)
[2021-03-14] MEDS: Albuterol 200 PUFF (6.7GM INHALER) INH SCH ×3 (07:57→18:18)
[2021-03-14 08:14] LABS: Actual Bicarbonate (HCO3a) 32.1 mEq/L (22-28); Base Excess (BEa) 7.8 mEq/L (-2.0 to +3.0); CO2 Tension 44.2 mmHg (35.0-45.0); Calcium, Ionized (arterial) 1.14 mmol/L (1.12-1.30); Carboxyhemoglobin (COHb) 0.6 gm% (0.0-3.0); Hemoglobin (Hb) 8.6 g/dL (12.0-16.0); Potassium - ABG Lab 3.76 mmol/L (3.70-5.30); pH, Arterial 7.48 (7.35-7.45)
[2021-03-14 08:15] LABS: O2 Tension (PaO2), arterial 55.6 mmHg (80.0-100.0); Puncture Site RRA
[2021-03-14] MEDS ORDERED: Fentanyl CADD 100 ML ONE ×2 (08:47→22:46)
[2021-03-14] MEDS: Fentanyl CADD 100 ML IV SCH ×2 (08:49→23:00)
[2021-03-14] MEDS: Polyethylene Glycol 3350 17 GM Packet PER TUBE SCH (09:00)
[2021-03-14] MEDS: Enoxaparin Sodium 40 MG/0.4 ML SYRINGE SC SCH ×2 (09:31→20:50)
[2021-03-14] MEDS: Dexamethasone 4 mg/ml Vial SLOW IVP SCH ×2 (09:31→20:50)
[2021-03-14] MEDS: Cholecalciferol 1,000 UNITS (25 MCG) TAB PO SCH (09:32)
[2021-03-14] MEDS: Ascorbic Acid 500 mg Chewable Tablet PO SCH (09:32)
[2021-03-14] MEDS: Pantoprazole 40 MG GRANULES PACKET PO SCH (09:32)
[2021-03-14] MEDS: Colchicine 0.6 MG TAB PO SCH ×2 (09:32→20:50)
[2021-03-14] MEDS: Zinc Sulfate 220 MG CAP PO SCH (09:32)
[2021-03-14] MEDS: Aspirin Chewable 81 MG TAB PO SCH (09:32)
[2021-03-14] MEDS: Pregabalin 75 MG CAP PO SCH ×3 (09:32→20:50)
[2021-03-14] MEDS: Senokot S 8.6-50 MG TAB PO SCH ×2 (09:32→20:51)
[2021-03-14] MEDS: FLUoxetine HCl 10 MG CAP PO SCH (09:33)
[2021-03-14] MEDS: Amlodipine 5 MG TAB PER TUBE SCH (15:53)
[2021-03-14] MEDS: cloNIDine 0.1 MG TAB PO SCH (20:51)
[2021-03-14] MEDS ORDERED: Propofol 1,000 MG/100 ML VIAL IV ONE (23:56)
[2021-03-15] MEDS: Albuterol 200 PUFF (6.7GM INHALER) INH SCH ×4 (01:04→20:53)
[2021-03-15] MEDS: Propofol 1,000 MG/100 ML VIAL IV PRN ×6 (04:21→21:01)
[2021-03-15 05:14] LABS: ALT (SGPT) 16 U/L (8-55); AST (SGOT) 11 U/L (5-34); Albumin 2.8 g/dL (3.5-5.0); Alkaline Phosphatase 61 U/L (40-110); Anion Gap 10 mmol/L (10-20); BUN (Urea Nitrogen) 16 mg/dL (7.0-18.7); Bilirubin, Total 0.3 mg/dL (0.2-1.2); Calc. Creatinine Clearance 271 mL/min (70-130); Carbon Dioxide 36 mmol/L (22-29); Chloride 97 mmol/L (98-107); Globulin 3.1 g/dL (2.4-3.5); Glucose 124 mg/dL (70-105); Potassium 4.2 mmol/L (3.5-5.1); Protein, Total 5.9 g/dL (6.0-8.3); Sodium 139 mmol/L (136-145)
[2021-03-15 05:34] LABS: Anisocytosis SLIGHT = 6-15 cells (100X) (0-5/hpf); Band 13 % (5-11); Elliptocytes SLIGHT = 2-5 cells (100X) (0-1/hpf); Hemoglobin 8.3 g/dL (12.0-16.0); Hypochromia SLIGHT = 6-15 cells (100X) (0-5/hpf); Lymphocytes 1 % (21-51); MDiff Complete? YES; Mean Corpuscular HGB CONC 31.5 g/dL (32.0-36.0); Mean Corpuscular Hemoglobin 25.3 pg (27.0-31.0); Mean Corpuscular Volume 80.4 fL (78.0-98.0); Mean Platelet Volume 10.2 fL (7.4-10.4); Metamyelocyte 2 % (0-0); Monocytes 5 % (0-10); Myelocyte 2 % (0-0); Neutrophil 76 % (42-75); Platelet Count 229 thou/uL (130-400); Platelet Morphology Comment Appears Adequate; Polychromasia SLIGHT = 2-3 cells (100X) (0-2/hpf); RBC Distribution Width 16.1 % (11.5-14.5); Reactive Lymphocytes 1 % (0-10); Red Blood Cell (RBC) Count 3.27 mill/uL (4.20-5.40); White Blood Cell (WBC) Count 20.2 thou/uL (4.8-10.8)
[2021-03-15 07:13] LABS: Actual Bicarbonate (HCO3a) 33.6 mEq/L (22-28); Base Excess (BEa) 8.6 mEq/L (-2.0 to +3.0); CO2 Tension 49.6 mmHg (35.0-45.0); Calcium, Ionized (arterial) 1.16 mmol/L (1.12-1.30); Carboxyhemoglobin (COHb) 0.8 gm% (0.0-3.0); Hemoglobin (Hb) 8.8 g/dL (12.0-16.0); Potassium - ABG Lab 4.24 mmol/L (3.70-5.30); pH, Arterial 7.45 (7.35-7.45)
[2021-03-15 07:14] LABS: O2 Tension (PaO2), arterial 53.1 mmHg (80.0-100.0); Puncture Site RRA
[2021-03-15 10:56] VITALS: BMI 38.8
[2021-03-15] MEDS: Dexamethasone 4 mg/ml Vial SLOW IVP SCH ×2 (11:41→20:48)
[2021-03-15] MEDS: Cholecalciferol 1,000 UNITS (25 MCG) TAB PO SCH (11:41)
[2021-03-15] MEDS: Enoxaparin Sodium 40 MG/0.4 ML SYRINGE SC SCH ×2 (11:42→20:46)
[2021-03-15] MEDS: Furosemide 40 MG/4 ML VIAL SLOW IVP SCH (11:42)
[2021-03-15] MEDS: Senokot S 8.6-50 MG TAB PO SCH ×2 (11:43→20:48)
[2021-03-15] MEDS: Ascorbic Acid 500 mg Chewable Tablet PO SCH (11:43)
[2021-03-15] MEDS: Zinc Sulfate 220 MG CAP PO SCH (11:44)
[2021-03-15] MEDS: Pregabalin 75 MG CAP PO SCH ×3 (11:44→20:47)
[2021-03-15] MEDS: Polyethylene Glycol 3350 17 GM Packet PER TUBE SCH (11:44)
[2021-03-15] MEDS: Aspirin Chewable 81 MG TAB PO SCH (11:45)
[2021-03-15] MEDS: Pantoprazole 40 MG GRANULES PACKET PO SCH (11:45)
[2021-03-15] MEDS: Colchicine 0.6 MG TAB PO SCH ×2 (11:49→20:46)
[2021-03-15] MEDS: FLUoxetine HCl 10 MG CAP PO SCH (11:52)
[2021-03-15] MEDS: Fentanyl CADD 100 ML IV SCH ×2 (12:12→21:24)
[2021-03-15 14:47] LABS: Actual Bicarbonate (HCO3a) 36.3 mEq/L (22-28); Base Excess (BEa) 10.7 mEq/L (-2.0 to +3.0); Calcium, Ionized (arterial) 1.12 mmol/L (1.12-1.30); Carboxyhemoglobin (COHb) 0.3 gm% (0.0-3.0); Hemoglobin (Hb) 8.7 g/dL (12.0-16.0); Potassium - ABG Lab 3.84 mmol/L (3.70-5.30); pH, Arterial 7.44 (7.35-7.45)
[2021-03-15 14:49] LABS: Puncture Site LRA
[2021-03-15] MEDS: Amlodipine 5 MG TAB PER TUBE SCH ×2 (14:52→14:53)
[2021-03-15] MEDS: cloNIDine 0.1 MG TAB PO SCH (20:45)
[2021-03-15] MEDS: Acetaminophen 325 MG TAB PO PRN (21:07)
[2021-03-15] MEDS ORDERED: Fentanyl CADD 100 ML ONE (21:20)
[2021-03-16] MEDS: Propofol 1,000 MG/100 ML VIAL IV PRN ×9 (00:32→23:47)
[2021-03-16] MEDS: Albuterol 200 PUFF (6.7GM INHALER) INH SCH ×4 (02:39→19:35)
[2021-03-16 04:43] LABS: #Basophils 0.1 thou/uL (0.0-0.2); #Eosinphils 0.1 thou/uL (0.0-0.7); #Lymphocytes 0.4 thou/uL (1.20-3.40); #Monocytes 0.4 thou/uL (0.11-0.59); #Neutrophils 16.1 thou/uL (1.40-6.50); %Basophils 0.4 % (0.0-1.0); %Eosinophils 0.5 % (0.0-10.0); %Lymphocytes 2.2 % (21.0-51.0); %Monocytes 2.5 % (0.0-10.0); %Neutrophils 94.5 % (42.0-75.0); Hemoglobin 7.5 g/dL (12.0-16.0); Mean Corpuscular HGB CONC 29.6 g/dL (32.0-36.0); Mean Corpuscular Volume 81.2 fL (78.0-98.0); Mean Platelet Volume 9.7 fL (7.4-10.4); Platelet Count 231 thou/uL (130-400); RBC Distribution Width 15.8 % (11.5-14.5); Red Blood Cell (RBC) Count 3.13 mill/uL (4.20-5.40)
[2021-03-16 05:01] LABS: ALT (SGPT) 14 U/L (8-55); AST (SGOT) 13 U/L (5-34); Albumin 2.6 g/dL (3.5-5.0); Alkaline Phosphatase 56 U/L (40-110); BUN (Urea Nitrogen) 18 mg/dL (7.0-18.7); Bilirubin, Total 0.3 mg/dL (0.2-1.2); Calc. Creatinine Clearance 276 mL/min (70-130); Calcium 8.8 mg/dL (7.8-10.44); Glucose 136 mg/dL (70-105); Protein, Total 5.6 g/dL (6.0-8.3)
[2021-03-16 05:11] LABS: Anion Gap 13 mmol/L (10-20); Carbon Dioxide 34 mmol/L (22-29); Chloride 97 mmol/L (98-107); Potassium 4.1 mmol/L (3.5-5.1); Sodium 140 mmol/L (136-145)
[2021-03-16 07:23] LABS: Actual Bicarbonate (HCO3a) 38.3 mEq/L (22-28); Base Excess (BEa) 11.3 mEq/L (-2.0 to +3.0); Calcium, Ionized (arterial) 1.19 mmol/L (1.12-1.30); Hemoglobin (Hb) 8.3 g/dL (12.0-16.0); O2 Tension (PaO2), arterial 64.7 mmHg (80.0-100.0); Potassium - ABG Lab 4.23 mmol/L (3.70-5.30); pH, Arterial 7.36 (7.35-7.45)
[2021-03-16 07:24] LABS: CO2 Tension 69.4 mmHg (35.0-45.0); Puncture Site RRA
[2021-03-16] MEDS: Enoxaparin Sodium 40 MG/0.4 ML SYRINGE SC SCH ×2 (08:16→21:03)
[2021-03-16] MEDS: Polyethylene Glycol 3350 17 GM Packet PER TUBE SCH (08:16)
[2021-03-16] MEDS: Senokot S 8.6-50 MG TAB PO SCH ×2 (08:17→21:03)
[2021-03-16] MEDS: Colchicine 0.6 MG TAB PO SCH ×2 (08:17→21:03)
[2021-03-16] MEDS: Cholecalciferol 1,000 UNITS (25 MCG) TAB PO SCH (08:17)
[2021-03-16] MEDS: Dexamethasone 4 mg/ml Vial SLOW IVP SCH (08:18)
[2021-03-16] MEDS: Aspirin Chewable 81 MG TAB PO SCH (08:18)
[2021-03-16] MEDS: Zinc Sulfate 220 MG CAP PO SCH (08:18)
[2021-03-16] MEDS: Pregabalin 75 MG CAP PO SCH ×3 (08:18→21:03)
[2021-03-16] MEDS: Ascorbic Acid 500 mg Chewable Tablet PO SCH (08:18)
[2021-03-16] MEDS: Furosemide 40 MG/4 ML VIAL SLOW IVP SCH (08:18)
[2021-03-16] MEDS: FLUoxetine HCl 10 MG CAP PO SCH (08:18)
[2021-03-16] MEDS: Pantoprazole 40 MG GRANULES PACKET PO SCH (08:18)
[2021-03-16] MEDS: Fentanyl CADD 100 ML IV SCH ×2 (08:20→18:27)
[2021-03-16] MEDS: Amlodipine 5 MG TAB PER TUBE SCH (13:52)
[2021-03-16] MEDS: Dexmedetomidine 1,000 MCG in Sodium Chloride 0.9% 250 ML 240 ML IVPB SCH (20:54)
[2021-03-16] MEDS: cloNIDine 0.1 MG TAB PO SCH (21:02)
[2021-03-16] MEDS: Acetaminophen 325 MG TAB PO PRN (23:47)
[2021-03-17] MEDS: Albuterol 200 PUFF (6.7GM INHALER) INH SCH ×3 (00:43→13:37)
[2021-03-17] MEDS: Propofol 1,000 MG/100 ML VIAL IV PRN ×5 (02:51→15:02)
[2021-03-17] MEDS ORDERED: Fentanyl CADD 100 ML ONE (04:01)
[2021-03-17] MEDS: Fentanyl CADD 100 ML IV SCH ×2 (04:08→14:02)
[2021-03-17 04:22] LABS: Hemoglobin 8.6 g/dL (12.0-16.0); Mean Corpuscular HGB CONC 29.8 g/dL (32.0-36.0); Mean Corpuscular Hemoglobin 24.5 pg (27.0-31.0); Mean Corpuscular Volume 82.4 fL (78.0-98.0); Mean Platelet Volume 9.7 fL (7.4-10.4); Platelet Count 260 thou/uL (130-400); RBC Distribution Width 15.9 % (11.5-14.5); Red Blood Cell (RBC) Count 3.51 mill/uL (4.20-5.40); White Blood Cell (WBC) Count 23.5 thou/uL (4.8-10.8)
[2021-03-17 04:36] LABS: ALT (SGPT) 18 U/L (8-55); AST (SGOT) 15 U/L (5-34); Albumin 2.7 g/dL (3.5-5.0); Alkaline Phosphatase 61 U/L (40-110); BUN (Urea Nitrogen) 20 mg/dL (7.0-18.7); Bilirubin, Total 0.5 mg/dL (0.2-1.2); Calc. Creatinine Clearance 283 mL/min (70-130); Calcium 8.9 mg/dL (7.8-10.44); Globulin 3.2 g/dL (2.4-3.5); Glucose 111 mg/dL (70-105); Protein, Total 5.9 g/dL (6.0-8.3)
[2021-03-17 04:45] LABS: Anion Gap 16 mmol/L (10-20); Carbon Dioxide 33 mmol/L (22-29); Chloride 96 mmol/L (98-107); Sodium 141 mmol/L (136-145)
[2021-03-17] MEDS: Acetaminophen 325 MG TAB PO PRN (04:48)
[2021-03-17 05:00] LABS: Band 14 % (5-11); Eosinophils 4 % (0-10); MDiff Complete? YES; Metamyelocyte 1 % (0-0); Monocytes 1 % (0-10); Myelocyte 2 % (0-0); Neutrophil 78 % (42-75); Polychromasia SLIGHT = 2-3 cells (100X) (0-2/hpf)
[2021-03-17 08:00] LABS: Actual Bicarbonate (HCO3a) 40.2 mEq/L (22-28); Base Excess (BEa) 10.9 mEq/L (-2.0 to +3.0); Carboxyhemoglobin (COHb) 1.2 gm% (0.0-3.0); Hemoglobin (Hb) 9.3 g/dL (12.0-16.0); O2 Tension (PaO2), arterial 69.6 mmHg (80.0-100.0); Potassium - ABG Lab 3.82 mmol/L (3.70-5.30); pH, Arterial 7.27 (7.35-7.45)
[2021-03-17 08:09] LABS: CO2 Tension 90.6 mmHg (35.0-45.0); Puncture Site RRA
[2021-03-17] MEDS: Enoxaparin Sodium 40 MG/0.4 ML SYRINGE SC SCH (08:56)
[2021-03-17] MEDS: Polyethylene Glycol 3350 17 GM Packet PER TUBE SCH (08:57)
[2021-03-17] MEDS: Senokot S 8.6-50 MG TAB PO SCH (08:58)
[2021-03-17] MEDS: Pregabalin 75 MG CAP PO SCH (08:58)
[2021-03-17] MEDS: FLUoxetine HCl 10 MG CAP PO SCH (08:58)
[2021-03-17] MEDS: Zinc Sulfate 220 MG CAP PO SCH (08:58)
[2021-03-17] MEDS: Furosemide 40 MG/4 ML VIAL SLOW IVP SCH (08:58)
[2021-03-17] MEDS: Cholecalciferol 1,000 UNITS (25 MCG) TAB PO SCH (08:58)
[2021-03-17] MEDS: Ascorbic Acid 500 mg Chewable Tablet PO SCH (08:59)
[2021-03-17] MEDS: Pantoprazole 40 MG GRANULES PACKET PO SCH (08:59)
[2021-03-17] MEDS: Colchicine 0.6 MG TAB PO SCH (09:00)
[2021-03-17] MEDS: Aspirin Chewable 81 MG TAB PO SCH (09:00)
[2021-03-17] MEDS ORDERED: Dexamethasone 4 mg/ml Vial SLOW IVP SCH (09:00)
[2021-03-17] MEDS: Dexmedetomidine 1,000 MCG in Sodium Chloride 0.9% 250 ML 240 ML IVPB SCH (11:02)
[2021-03-17 13:00] VITALS: TEMP 98.7
[2021-03-17] MEDS: Amlodipine 5 MG TAB PER TUBE SCH (13:12)
[2021-03-17 13:13] VITALS: BP 111/68
[2021-03-17] MEDS: Lorazepam 2 MG/ML VIAL SLOW IVP PRN ×3 (15:32→16:52)
[2021-03-17] MEDS ORDERED: Lorazepam 2 MG/ML VIAL SLOW IVP PRN (15:33)
[2021-03-17] MEDS: Morphine 4 MG/ML VIAL SLOW IVP PRN ×2 (16:23→16:51)
== END 2021-03-17 17:09 | disposition expired | DRG 870 ==
LOC: T4-A 07:26 → IMCU/EMU 02-27 20:50 → CCU 03-04 12:50
PROVIDERS: ADMIT Student in an Organized Health Care Education/Training Program; ATTEND Internal Medicine
PROC: XW033E5 Introduction of Remdesivir Anti-infective into Peripheral Vein, Percutaneous Approach, New Technology Group 5 (ICD-10-PCS; principal; 2021-02-25)
PROC: 3E0333Z Introduction of Anti-inflammatory into Peripheral Vein, Percutaneous Approach (ICD-10-PCS; 2021-02-25)
PROC: 8E0ZXY6 Isolation (ICD-10-PCS; 2021-02-25)
PROC: 5A0955A Assistance with Respiratory Ventilation, Greater than 96 Consecutive Hours, High Flow/Velocity Cannula (ICD-10-PCS; 2021-02-25)
PROC: XW0DXM6 Introduction of Baricitinib into Mouth and Pharynx, External Approach, New Technology Group 6 (ICD-10-PCS; 2021-02-26)
PROC: 5A1955Z Respiratory Ventilation, Greater than 96 Consecutive Hours (ICD-10-PCS; 2021-03-04)
PROC: 3E033XZ Introduction of Vasopressor into Peripheral Vein, Percutaneous Approach (ICD-10-PCS; 2021-03-04)
PROC: 02HV33Z Insertion of Infusion Device into Superior Vena Cava, Percutaneous Approach (ICD-10-PCS; 2021-03-04)
PROC: B548ZZA Ultrasonography of Superior Vena Cava, Guidance (ICD-10-PCS; 2021-03-04)
PROC: 0BH18EZ Insertion of Endotracheal Airway into Trachea, Via Natural or Artificial Opening Endoscopic (ICD-10-PCS; 2021-03-04)
PROC: 0DH67UZ Insertion of Feeding Device into Stomach, Via Natural or Artificial Opening (ICD-10-PCS; 2021-03-04)
PROC: 5A09359 Assistance with Respiratory Ventilation, Less than 24 Consecutive Hours, Continuous Negative Airway Pressure (ICD-10-PCS; 2021-03-04)
PROC: 3E0G76Z Introduction of Nutritional Substance into Upper GI, Via Natural or Artificial Opening (ICD-10-PCS; 2021-03-04)
PROC: 0W9B00Z Drainage of Left Pleural Cavity with Drainage Device, Open Approach (ICD-10-PCS; 2021-03-12)
PROC: 0W9930Z Drainage of Right Pleural Cavity with Drainage Device, Percutaneous Approach (ICD-10-PCS; 2021-03-14)
PROC: 0W9930Z Drainage of Right Pleural Cavity with Drainage Device, Percutaneous Approach (ICD-10-PCS; 2021-03-15)
DX: A41.89 Other specified sepsis (principal); U07.1 COVID-19; J80 Acute respiratory distress syndrome; J12.82 Pneumonia due to coronavirus disease 2019; J93.0 Spontaneous tension pneumothorax; F33.9 Major depressive disorder, recurrent, unspecified; D61.818 Other pancytopenia; Z66 Do not resuscitate; Z51.5 Encounter for palliative care; I46.8 Cardiac arrest due to other underlying condition; R65.20 Severe sepsis without septic shock; E66.9 Obesity, unspecified; I10 Essential (primary) hypertension; E87.6 Hypokalemia; G89.29 Other chronic pain; D63.8 Anemia in other chronic diseases classified elsewhere; F41.0 Panic disorder [episodic paroxysmal anxiety]; M54.9 Dorsalgia, unspecified; R94.5 Abnormal results of liver function studies; R45.1 Restlessness and agitation; Z90.49 Acquired absence of other specified parts of digestive tract; Z78.1 Physical restraint status; Z68.39 Body mass index [BMI] 39.0-39.9, adult; Z88.0 Allergy status to penicillin; Z91.018 Allergy to other foods; Z79.899 Other long term (current) drug therapy; Z79.52 Long term (current) use of systemic steroids; Z98.84 Bariatric surgery status; Z88.8 Allergy status to other drugs, medicaments and biological substances; Z79.01 Long term (current) use of anticoagulants
CPT/HCPCS: 36415; 36600; 71045; 71275; 80048; 80053; 80076; 82728; 82805; 83735; 84100; 84145; 84478; 85014; 85018; 85025; 85049; 85379; 86140; 94002; 94003; 94664; 96372; 96374; J1100; J1120; J1650; J1940; J2060; J2250; J2270; J2405; J2704; J3010; J3475; J3490; J7050; Q0162; Q9967